=== PATIENT | female | born 1945 | race Caucasian/White ===

== ENCOUNTER 2020-11-05 10:34 | Outpatient (REF) | payer MEDICARE, OTHER, SELFPAY | END 2020-11-05 10:35 | disposition home or self-care (01) | LOC: HO.LNP 10:34 | PROVIDERS: Visit Provider Internal Medicine | DX: R25.2 Cramp and spasm (principal) | CPT/HCPCS: 82310 ==

== ENCOUNTER 2021-05-27 10:38 | Outpatient (REF) | payer MEDICARE, OTHER, SELFPAY ==
[2021-05-27 10:41] LABS: MANUAL DIFF FLAG NO
[2021-05-27 11:10] LABS: Basophils Percent Auto 0.4 % (0-2); Eosinophils Percent Auto 0.6 % (0-4); Hematocrit 41.9 % (37.0-47.0); Hemoglobin 13.4 g/dl (12.0-16.0); Imm Gran Abs Auto 0.03 X10*3/uL (0.00-0.03); Imm Gran Pct Auto 0.4 % (0.0-0.4); Lymphocytes Absolute Auto 1.7 X10*3/uL (1.2-4.9); Lymphocytes Percent Auto 25.6 % (20-40); Mean Corpuscular Hemoglobin 32.6 pg (27.0-33.0); Mean Corpuscular Volume 101.9 fL (80.0-98.0); Mean Platelet Volume 10.1 fL (9.4-12.3); Monocytes Absolute Auto 0.7 X10*3/uL (0.1-1.2); Monocytes Percent Auto 9.7 % (2-11); Neutrophils Absolute Auto 4.2 x10*3/uL (2.0-8.3); Neutrophils Percent Auto 63.3 % (45-73); Platelet Count 349 X10*3/uL (160-400); Red Blood Count 4.11 X10*6/uL (4.20-5.50); White Blood Count 6.7 X10*3/uL (4.8-10.8)
[2021-05-27 11:19] LABS: Appearance Urine HAZY; Color Urine YELLOW; Glucose Urine UA NEG (NEG); Leukocyte Esterase Urine NEG (NEG); Nitrite Urine NEG (NEG); Urine Blood NEG (NEG); Urine Ketones NEG (NEG); Urine Protein NEG (NEG-TRACE)
[2021-05-27 11:39] LABS: Alanine Aminotransferase 25 U/L (0-31); Alkaline Phosphatase 60 U/L (39-117); Anion Gap 12 (12-20); Aspartate Amino Transferase 26 U/L (5-31); Bilirubin Total 0.6 mg/dL (0.0-1.0); Blood Urea Nitrogen 21 mg/dL (9-16); Calcium 9.2 mg/dL (8.4-10.2); Carbon Dioxide 28 mmol/L (22-29); Chloride 105 mmol/L (96-108); Cholesterol 177 mg/dL; Estimated Glomerular Filt Rate > 60; Glucose Fasting 113 mg/dL (60-99); HDL Cholesterol 42 mg/dL; LDL Cholesterol Calculated 111 mg/dl; Sodium 140 mmol/L (135-145); Total Protein 6.8 g/dL (6.5-8.0); Triglycerides 120 mg/dL
== END 2021-05-27 10:39 | disposition home or self-care (01) ==
LOC: HO.LNP 10:38
PROVIDERS: Visit Provider Internal Medicine
DX: I10 Essential (primary) hypertension (principal); R79.9 Abnormal finding of blood chemistry, unspecified; E21.3 Hyperparathyroidism, unspecified
CPT/HCPCS: 80053; 80061; 81003; 85025

== ENCOUNTER 2021-05-30 13:05 | Outpatient (REF) | payer MEDICARE, OTHER, SELFPAY ==
--- NOTE | ~2021-05-30 | XR_ITS ---
EXAMINATION: XR CERVICAL SPINE CLINICAL INFORMATION: Mass in neck COMPARISON: None TECHNIQUE: 6 views of the cervical spine were obtained. FINDINGS: The cervical spine is visualized in its entirety. Alignment is within normal limits although there appears to be moderate levoscoliosis of the cervical/thoracic spine centered at T4. C1/C2 articulation is suboptimally visualized but appears grossly unremarkable. Cervical vertebral body heights are maintained. Disc spaces demonstrate moderate to severe narrowing throughout the mid and lower cervical spine. Moderate osteophytes are noted diffusely throughout the cervical spine. There appears to be mild to moderate narrowing of the right C4/C5 neural foramina with mild narrowing of the left C4/C5 neural foramina. There is no prevertebral soft tissue swelling present. Old left first rib fractures again identified. Visualized lung apices are well aerated. XR/XR cervical spine 4V IMPRESSION: Moderate diffuse degenerative changes of the cervical spine. No compression deformity.
--- NOTE | ~2021-05-30 | MM_ITS ---
EXAMINATION: BONE DENSITOMETRY CLINICAL INDICATION: Osteoporosis. COMPARISON: Baseline BD dated 05/26/2019. TECHNIQUE: Using a [employer] DXA System (software version: 13.1) manufactured by [employer], dual-energy x-ray absorptiometry was performed of the lumbar spine, left hip, and right forearm radius 33%. The images are of good technical quality. Summary results are attached. FINDINGS: AP SPINE L1-L4: Current: BMD 1.053 g/cm2, Z-score 0.4, T-score -1.1, osteopenia, 3.6% decrease from baseline (<5% change is not significant). Baseline: BMD 1.092 g/cm2. LEFT FEMUR, NECK: Current: BMD 0.872 g/cm2, Z-score 0.6, T-score -1.2, osteopenia. Baseline: BMD 0.823 g/cm2. LEFT FEMUR, TOTAL: Current: BMD 0.870 g/cm2, Z-score 0.5, T-score -1.1, osteopenia, 11.7% increase from baseline (<5% change is not significant). Baseline: BMD 0.779 g/cm2. RIGHT FOREARM RADIUS 33%: BMD 0.644 g/cm2, Z-score -0.3, T-score -2.7, osteoporosis, 0.8% increase from baseline (<5% change is not significant). Baseline: BMD 0.639 g/cm2. IDENTIFIED RISK FACTORS: Osteoporosis, hyperparathyroidism, 3 or more alcoholic drinks per day, history of fracture (adult), menopause. HISTORY OF FRACTURE: Wrist. Other. MEDICATIONS: Calcium supplements or multivitamin, vitamin D. MM/XR DEXA appendicular skeleton IMPRESSION: 1. DIAGNOSIS: Severe osteoporosis based on the lowest T-score value of -2.7 in the forearm radius 33% and fracture history applying World Health Organization criteria. 2. 10-YEAR FRACTURE RISK PREDICTION, FRAX: Major osteoporotic fracture (clinical spine, forearm, hip or shoulder) 19.4%. Hip fracture 4.0%. 3. Treatment Recommendations: NOF guidelines recommend consideration for treatment in postmenopausal women and men age 50 and older presenting with the following: -A hip or vertebral (clinical or morphometric) fracture. -T-score less than or equal to -2.5 at the femoral neck or spine after appropriate evaluation to exclude secondary causes. -Low bone mass at the hip or spine and a 10-year fracture probability by FRAX of greater than or equal to 3% for hip fracture or greater than or equal to 20% for major osteoporotic fracture based on the [place] adapted WHO algorithm. 4. Other Recommendations: All treatment decisions require clinical judgment and consideration of individual patient factors, including patient preferences, comorbidities, previous drug use, risk factors not captured in the FRAX model (e.g. frailty, falls, vitamin D deficiency, increased bone turnover, interval significant decline in bone density) and possible under or overestimation of fracture risk by FRAX. Additional medical evaluation for secondary cause of low bone mineral density may be appropriate. FUTURE SCAN RECOMMENDATION: People with diagnosed cases of osteoporosis or at high risk for fracture should have regular bone mineral density tests. For patients eligible for Medicare, routine testing is allowed once every 2 years. The testing frequency can be increased to one year for patients who have rapidly progressing disease, those who are receiving or discontinuing medical therapy to restore bone mass, or have additional risk factors.
== END 2021-05-30 13:06 | disposition home or self-care (01) ==
LOC: HO.MAMMO 13:05
PROVIDERS: PCP Internal Medicine; Visit Provider Internal Medicine
DX: Z13.820 Encounter for screening for osteoporosis (principal); M81.0 Age-related osteoporosis without current pathological fracture; E21.3 Hyperparathyroidism, unspecified; R22.1 Localized swelling, mass and lump, neck; Z79.899 Other long term (current) drug therapy; Z87.81 Personal history of (healed) traumatic fracture
CPT/HCPCS: 72050; 77081

== ENCOUNTER 2022-05-26 11:13 | Outpatient (REF) | payer MEDICARE, OTHER, SELFPAY ==
[2022-05-26 11:15] LABS: MANUAL DIFF FLAG NO
[2022-05-26 11:50] LABS: Appearance Urine Clear; Color Urine Yellow; Glucose Urine UA Negative (Negative); Leukocyte Esterase Urine Small (1+) (Negative); Nitrite Urine Positive (Negative); PH 5.5 (5.0-9.0); UMIC TRIGGER UA YES; Urine Blood Negative (Negative); Urine Ketones Negative (Negative); Urine Protein Negative (Neg-Trace)
[2022-05-26 11:54] LABS: Bacteria Urine 4+ (None Seen); Hyaline Casts Urine 0-2 /LPF (0-2); RBC Urine 0-2 /HPF (0-2); Squamous Epithelial Cell Urine 0-2 /HPF (0-2); WBC Urine 21-50 /HPF (0-5)
[2022-05-26 11:56] LABS: Hematocrit 41.6 % (37.0-47.0); Hemoglobin 13.5 g/dl (12.0-16.0); Imm Gran Pct Auto 0.4 % (0.0-0.4); Mean Corpuscular HGB Conc 32.5 g/dl (31.0-35.0); Mean Corpuscular Hemoglobin 32.5 pg (27.0-33.0); Mean Corpuscular Volume 100.2 fL (80.0-98.0); Mean Platelet Volume 10.5 fL (9.4-12.3); Neutrophils Percent Auto 66.7 % (45-73); Platelet Count 380 X10*3/uL (160-400); Red Blood Count 4.15 X10*6/uL (4.20-5.50); Red Cell Distribution Width 12.8 % (11.0-16.0); White Blood Count 8.5 X10*3/uL (4.8-10.8)
[2022-05-26 11:57] LABS: Basophils Percent Auto 0.5 % (0-2); Eosinophils Percent Auto 0.4 % (0-4); Imm Gran Abs Auto 0.03 X10*3/uL (0.00-0.03); Monocytes Absolute Auto 0.8 X10*3/uL (0.1-1.2); Neutrophils Absolute Auto 5.7 x10*3/uL (2.0-8.3)
[2022-05-26 12:25] LABS: Alanine Aminotransferase 27 U/L (0-31); Albumin Level 4.2 g/dL (3.5-5.0); Alkaline Phosphatase 54 U/L (39-117); Anion Gap 11 (12-20); Aspartate Amino Transferase 34 U/L (5-31); Bilirubin Total 0.5 mg/dL (0.0-1.0); Blood Urea Nitrogen 38 mg/dL (9-16); Calcium 8.9 mg/dL (8.4-10.2); Carbon Dioxide 28 mmol/L (22-29); Chloride 107 mmol/L (96-108); Cholesterol 164 mg/dL; Estimated Glomerular Filt Rate > 60; Glucose Fasting 114 mg/dL (60-99); HDL Cholesterol 44 mg/dL; LDL Cholesterol Calculated 98 mg/dl; Potassium 5.6 mmol/L (3.3-5.1); Sodium 140 mmol/L (135-145); Total Protein 6.9 g/dL (6.5-8.0); Triglycerides 111 mg/dL
== END 2022-05-26 11:14 | disposition home or self-care (01) ==
LOC: HO.LNP 11:13
PROVIDERS: Visit Provider Internal Medicine
DX: I10 Essential (primary) hypertension (principal); E21.3 Hyperparathyroidism, unspecified
CPT/HCPCS: 80053; 80061; 81001; 85025

== ENCOUNTER 2022-05-29 10:47 | Outpatient (REF) | payer MEDICARE, OTHER, SELFPAY ==
[2022-05-29 12:44] LABS: Blood Urea Nitrogen 30 mg/dL (9-16); Potassium 5.4 mmol/L (3.3-5.1)
== END 2022-05-29 10:48 | disposition home or self-care (01) ==
LOC: HO.LNP 10:47
PROVIDERS: Visit Provider Internal Medicine
DX: R79.9 Abnormal finding of blood chemistry, unspecified (principal); E87.5 Hyperkalemia
CPT/HCPCS: 84132; 84520

== ENCOUNTER 2022-06-30 10:49 | Outpatient (REF) | payer MEDICARE, OTHER, SELFPAY ==
[2022-06-30 11:30] LABS: Blood Urea Nitrogen 20 mg/dL (9-16)
== END 2022-06-30 10:50 | disposition home or self-care (01) ==
LOC: HO.LNP 10:49
PROVIDERS: Visit Provider Internal Medicine
DX: E87.5 Hyperkalemia (principal); R79.9 Abnormal finding of blood chemistry, unspecified
CPT/HCPCS: 84132; 84520

== ENCOUNTER 2023-03-03 09:31 | Outpatient (REF) | payer MEDICARE, OTHER, SELFPAY ==
[2023-03-03 10:07] LABS: Calcium 8.9 mg/dL (8.4-10.2)
[2023-03-03 10:28] LABS: COVID-19 Test Negative (Negative); IDNOW Serial# 08D9AD1C
[2023-03-10 16:33] LABS: Parathyroid Hormone Related Pr 12 pg/mL (11-20)
== END 2023-03-03 09:32 | disposition home or self-care (01) ==
LOC: HO.LAB 09:31
PROVIDERS: PCP Internal Medicine; Visit Provider Internal Medicine
DX: E21.3 Hyperparathyroidism, unspecified (principal); Z20.822 Contact with and (suspected) exposure to COVID-19
CPT/HCPCS: 82310; 83519; 87635

== ENCOUNTER 2023-05-28 10:47 | Outpatient (REF) | payer MEDICARE, OTHER, SELFPAY ==
[2023-05-28 10:52] LABS: MANUAL DIFF FLAG NO
[2023-05-28 11:08] LABS: Appearance Urine Cloudy; Color Urine Yellow; Glucose Urine UA Negative (Negative); Leukocyte Esterase Urine Moderate (2+) (Negative); Nitrite Urine Positive (Negative); UMIC TRIGGER UACC YES; Urine Blood Negative (Negative); Urine Ketones Negative (Negative); Urine Protein Negative (Neg-Trace)
[2023-05-28 11:16] LABS: Bacteria Urine 4+ (None Seen); Hyaline Casts Urine 0-2 /LPF (0-2); UACC Culture Trigger YES; WBC Urine >50 /HPF (0-5)
[2023-05-28 11:19] LABS: Alanine Aminotransferase 19 U/L (0-31); Alkaline Phosphatase 54 U/L (39-117); Anion Gap 11 (12-20); Aspartate Amino Transferase 25 U/L (5-31); Basophils Absolute Auto 0.1 X10*3/uL (0.0-0.2); Basophils Percent Auto 0.8 % (0-2); Bilirubin Total 0.7 mg/dL (0.0-1.0); Blood Urea Nitrogen 16 mg/dL (9-16); Calcium 9.1 mg/dL (8.4-10.2); Carbon Dioxide 31 mmol/L (22-29); Chloride 106 mmol/L (96-108); Cholesterol 192 mg/dL (<200); Eosinophils Absolute Auto 0.1 X10*3/uL (0.0-0.4); Eosinophils Percent Auto 1.1 % (0-4); Estimated Glomerular Filt Rate > 60; Glucose Fasting 112 mg/dL (60-99); HDL Cholesterol 58 mg/dL (>40); Hematocrit 43.8 % (37.0-47.0); Hemoglobin 14.2 g/dl (12.0-16.0); Imm Gran Abs Auto 0.01 X10*3/uL (0.00-0.03); Imm Gran Pct Auto 0.2 % (0.0-0.4); LDL Cholesterol Calculated 116 mg/dL (<100); Lymphocytes Absolute Auto 1.9 X10*3/uL (1.2-4.9); Lymphocytes Percent Auto 29.6 % (20-40); Mean Corpuscular HGB Conc 32.4 g/dl (31.0-35.0); Mean Corpuscular Hemoglobin 31.2 pg (27.0-33.0); Mean Corpuscular Volume 96.3 fL (80.0-98.0); Mean Platelet Volume 10.3 fL (9.4-12.3); Monocytes Absolute Auto 0.5 X10*3/uL (0.1-1.2); Monocytes Percent Auto 8.3 % (2-11); Neutrophils Absolute Auto 3.8 x10*3/uL (2.0-8.3); Platelet Count 318 X10*3/uL (160-400); Potassium 4.8 mmol/L (3.3-5.1); Red Blood Count 4.55 X10*6/uL (4.20-5.50); Red Cell Distribution Width 14.3 % (11.0-16.0); Sodium 143 mmol/L (135-145); Total Protein 7.1 g/dL (6.5-8.0); Triglycerides 91 mg/dL (<150); White Blood Count 6.3 X10*3/uL (4.8-10.8)
== END 2023-05-28 10:48 | disposition home or self-care (01) ==
LOC: HO.LNP 10:47
PROVIDERS: Visit Provider Internal Medicine
DX: I10 Essential (primary) hypertension (principal); E21.3 Hyperparathyroidism, unspecified; R82.90 Unspecified abnormal findings in urine
CPT/HCPCS: 80053; 80061; 81001; 85025; 87086; 87088; 87186

== ENCOUNTER 2023-06-18 11:03 | Outpatient (REF) | payer MEDICARE, OTHER, SELFPAY ==
[2023-06-18 11:29] LABS: Appearance Urine Clear; Color Urine Yellow; Glucose Urine UA Negative (Negative); Leukocyte Esterase Urine Negative (Negative); Nitrite Urine Negative (Negative); PH 7.5 (5.0-9.0); Urine Blood Negative (Negative); Urine Ketones Negative (Negative); Urine Protein Negative (Neg-Trace)
[2023-06-18 11:33] LABS: Bacteria Urine None Seen (None Seen); Hyaline Casts Urine 0-2 /LPF (0-2); RBC Urine 0-2 /HPF (0-2); Squamous Epithelial Cell Urine 0-2 /HPF (0-2); WBC Urine 0-5 /HPF (0-5)
== END 2023-06-18 11:04 | disposition home or self-care (01) ==
LOC: HO.LNP 11:03
PROVIDERS: Visit Provider Internal Medicine
DX: R31.29 Other microscopic hematuria (principal)
CPT/HCPCS: 81001; 87086

== ENCOUNTER 2024-02-01 10:26 | Outpatient (REF) | payer MEDICARE, OTHER, SELFPAY ==
[2024-02-01 10:57] LABS: Blood Urea Nitrogen 19 mg/dL (9-16); Calcium 9.1 mg/dL (8.4-10.2); Estimated Glomerular Filt Rate > 60
== END 2024-02-01 10:27 | disposition home or self-care (01) ==
LOC: HO.LNP 10:26
PROVIDERS: Visit Provider Internal Medicine
DX: R60.0 Localized edema (principal)
CPT/HCPCS: 82310; 82565; 84520

== ENCOUNTER 2024-06-27 12:00 | Outpatient (REF) | payer MEDICARE, OTHER, SELFPAY ==
[2024-06-27 13:09] LABS: Influenza A PCR POSITIVE (Negative); Influenza B PCR NEGATIVE (Negative); Resp Syncy Virus RNA Qual PCR NEGATIVE (Negative); SARS COV2 PCR INHOUSE NEGATIVE (Negative)
--- OUTSIDE RECORDS SUMMARY | 2024-06-27 13:57 | XMS_ITS | Patient Health Record ---
Author Organization Jauquin Thapa MD Address [address] [place], [place] [phone] Care Team Providers Care District Scout Executive Name Role Phone Juaquin Thapa Primary Care Provider ALLERGIES Allergen (clinical drug ingredient) Drug/Non Drug Allergy documented on EMR Reaction Allergy Type Onset Date Status Penicillin G Benzathine rash Drug Allergy Active RESULTS Component Value Reference Range Notes Blood Urea Nitrogen Reviewed date:02/01/2024 12:38:55 PM Interpretation: Performing Lab:[facility], [address] [place] [phone] Notes/Report: Blood Urea Nitrogen 19 9-16 mg/dL Creatinine Reviewed date:02/01/2024 12:38:37 PM Interpretation: Performing Lab:[address] [phone] Notes/Report: Creatinine 0.84 0.5-1.4 mg/dL Estimated Glomerular Filt Rate > 60 NOTE: For -Solomon Islander individuals, multiply the result by 1.210. Chronic Kidney Disease: Estimated GFR < 60 mL/min/1.73m2 Severe Kidney Disease: Estimated GFR < 15 mL/min/1.73m2 Calcium Reviewed date:02/01/2024 12:38:46 PM Interpretation: Performing Lab:[address] [phone] Notes/Report: Calcium 9.1 8.4-10.2 mg/dL SARS-CoV2/FLU/RSV Reviewed date:06/27/2024 01:54:35 PM Interpretation: Performing Lab:[address] [phone] Notes/Report: Influenza A PCR POSITIVE Negative Influenza B PCR NEGATIVE Negative Resp Syncy Virus RNA Qual PCR NEGATIVE Negative SARS COV2 PCR INHOUSE NEGATIVE Negative All test results must be correlated with clinical findings. Negative results do not preclude SARS-CoV2, influenza A virus, influenza B virus and/or RSV infection and should not be used as the sole basis for treatment or other patient management decisions. Negative results must be combined with clinical observations, patient history, and epidemiological information. This test has not been evaluated for monitoring treatment of infection. This test has been authorized by the FDA under an Emergency Use Authorization (EUA) for use by authorized laboratories. Testing performed on the [employer] GeneXpert utilizing real-time RT-PCR. All SARS CoV2 and positive influenza A/B results are reported to [facility]. REASON FOR REFERRAL No Information MEDICATIONS Medication SIG (Take, Route, Frequency, Duration) Notes Start Date End Date Status Calcium 500 MG 6 tabs at night and one in morning Twice a day Active Tamiflu 75 MG 1 capsule Orally Twi ce a day for 5 day(s) 06/27/2024 Active hydroCHLOROthiazide 25 MG TAKE 1 TABLET BY MOUTH EVERY DAY IN THE MORNING FOR 30 DAYS for 90 Active Carvedilol 12.5 MG TAKE 1 TABLET BY AVILA TH EVERY DAY WITH FOOD FOR 30 DAYS for 90 Active Calcitriol 0.25 MCG TAKE 1 CAPSULE BY MO [facility] THREE TIMES A DAY for 90 Active IMMUNIZATIONS Vaccine Route Administration Date Status Comme nts Covid Vaccine Unknown 07/26/2020 Administered Pfizer Covid Vaccine Unknown 08/16/2020 Administered Pfizer SARS-COV-2 Pfizer Unknown 04/06/2021 Administered Fluarix Quadrivalent Unknown 04/27/2018 Refused Shingrix Unknown 05/04/2018 Refused PPSV23 (Pnemovax) Unknown 11/01/2018 Refused Influenza High Dose Unknown 04/25/2019 Refused Fluarix Quadrivalent Unknown 05/07/2020 Refused Fluarix Quadrivalent Unknown 05/30/2021 Refused SOCIAL HISTORY Tobacco Use: Social History Observation Description Date Details (start date - stop date) Never Smoker NA - NA Sex Assigned At : Social History Observation Description Sex Assigned At Unknown Tobacco Use/Smoking Question Answer Notes Patient is a nonsmoker Additional Findings: Tobacco Non-User Cu rrent non-smoker, currently using no form of tobacco Alcohol Screen Question Answer Notes Did you have a drink contain ing alcohol in the past year? Yes How often did you have a dri nk containing alcohol in the past year? 4 or more times a week (4 points) How many drinks did you have on a typical day when you were drinking in the past year? 1 or 2 drinks (0 point) How often did you have 6 or more drinks on one occasion in the past year? Never (0 point) Points 4 Interpretation Positive PROBLEMS Problem Type ICD Code Onset Dates Problem Status W/U Status Risk SNOMED Code Notes Problem Age-related osteoporosis without current pathological fracture (M81.0) Active confirmed 35774829 Problem Essential hypertension (I10) Active confirmed 92782332 Problem Hyperparathyroidism (E21.3) Active confirmed 64690816 Problem Nocturnal leg cramps (G47.62) Active confirmed 006248132 Problem History of parathyroidectomy (Z98.890) Active confirmed [id number] VITAL SIGNS Blood pressure diastolic 70 mm Hg 02/08/2024 tae ght is down 3 pounds since 01-04-24 Height 63.5 in 06/27/2024 weight is 170 a t home BP not taken at home no temp Blood pressure systolic 152 mm Hg 02/08/2024 weig ht is down 3 pounds since 01-04-24 Weight 170 lbs 06/27/2024 weight is 170 a t home BP not taken at home no temp BMI 29.64 kg/m2 06/27/2024 weight is 170 a t home BP not taken at home no temp Encounters Encounter Location Date Provider Diagnosis Juaquin Thapa MD [address] [place] [id number] 02/01/2024 Juaquin Thapa Essential hypertensi on I10 and Lower extremity edema R60.0 Juaquin Thapa MD [address] [place] [id number] 12/04/2023 Juaquin Thapa Essential hypertensi on I10 ; Lower extremity edema R60.0 and Nocturnal leg cramps G47.62 Juaquin Thapa MD [address] [place] [id number] 01/04/2024 Juaquin Thapa Lower extremity chris a R60.0 and History of parathyroidectomy Z98.890 Juaquin Thapa MD [address] [place] [address] Drive [address] [place] [id number] 02/08/2024 Juaquin Thapa Intermittent vertigo R42 and Essential hypertension I10 Juaquin Thapa MD [address] [place], [place] [id number] 01/05/2024 Juaquin Thapa Lower extremity chris a R60.0 Juaquin Thapa MD [address] [place], [place] [id number] 06/27/2024 Juaquin Thapa Respiratory infectio n J98.8 and Flu J11.1 ASSESSMENTS Encounter Date Diagnosis Assessment Notes Treatment Notes Treatment Clinical Notes 02/01/2024 Essential hypertensi on (ICD-10 - I10) 02/01/2024 Lower extremity chris a (ICD-10 - R60.0) 12/04/2023 Essential hypertensi on (ICD-10 - I10) patient verbalized understanding of medication changes and directions for use 12/04/2023 Lower extremity chris a (ICD-10 - R60.0) will continue to monitor 01/04/2024 History of parathyroidectomy (ICD-10 - Z98.890) parathormone levels normal so calcium should not be a problem, will continue to monitor 01/04/2024 Lower extremity chris a (ICD-10 - R60.0) pending labs, patient verbalized understanding of medication and direction for use 02/08/2024 Essential hypertensi on (ICD-10 - I10) 02/08/2024 Intermittent vertigo (ICD-10 - R42) has resolved. only lasted a minute and was back to normal so was not a stroke 01/05/2024 Lower extremity chris a (ICD-10 - R60.0) 06/27/2024 Respiratory infectio n (ICD-10 - J98.8) patient verbalized understanding of medication and directions for use, order faxed to [facility] patient [place] 06/27/2024 Flu (ICD-10 - J11.1) pending diganostic testing 12/04/2023 Nocturnal leg cramps (ICD-10 - G47.62) to try some tonic water with quinine, and will continue to monitor PLAN OF TREATMENT Pending Test Test Name Order Date XR CERVICAL SPINE 4+ VIEWS 05/30/2021 XR DEXA axial skeleton 05/30/2021 Future Test Test Name Order Date XR DEXA axial skeleton 06/21/2021 Next Appt Details Provider Name:Juaquin Ashford ier, 07/12/2024 08:00:00 AM, [address], [address], [place], [place], [phone], Provider Name:Juaquin Ashford ier, 07/18/2024 01:00:00 PM, [address], [address], [place], [place], [phone], Insurance Providers Payer Name Payer Address Payer Phone Subscriber Number Group Number Insured Name Patient Relationship to Insured Coverage Start Date Coverage End Date MEDICARE NHIC [address] [place] [address] [id number] Keila Verde Self - patient is the insured [facility] [address] [place] [phone] [id number] Keila Verde Self - patient is the insured MEDICAL (GENERAL) HISTORY Medical History History ICD Code spoke with radiaologist and 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
--- OUTSIDE RECORDS SUMMARY | 2024-06-27 13:57 | XMS_ITS ---
Author Organization Juaquin Thapa MD Address [address] [place] [phone] Care Team Providers Care Multifocal Button Generator Name Role Phone Juaquin Thapa Primary Care Provider [phone] RESULTS Component Value Reference Range Notes Blood Urea Nitrogen Reviewed date:02/01/2024 12:38:55 PM Interpretation: Performing Lab:[facility], [address] [place] [phone] Notes/Report: Blood Urea Nitrogen 19 9-16 mg/dL Creatinine Reviewed date:02/01/2024 12:38:37 PM Interpretation: Performing Lab:[facility], [address] [place] [phone] Notes/Report: Creatinine 0.84 0.5-1.4 mg/dL Estimated Glomerular Filt Rate > 60 NOTE: For -Lebanese individuals, multiply the result by 1.210. Chronic Kidney Disease: Estimated GFR < 60 mL/min/1.73m2 Severe Kidney Disease: Estimated GFR < 15 mL/min/1.73m2 Calcium Reviewed date:02/01/2024 12:38:46 PM Interpretation: Performing Lab:[facility], [address] [place] [phone] Notes/Report: Calcium 9.1 8.4-10.2 mg/dL REASON FOR VISIT bun, creatine, Calcium Encounters Encounter Location Date Provider Diagnosis Juaquin Thapa MD [address] [place] [id number] 02/01/2024 Juaquin Thapa Essential hypertension I10 and Lower extremity edema R60.0 ASSESSMENTS Encounter Date Diagnosis Assessment Notes Treatment Notes Treatment Clinical Notes 02/01/2024 Essential hypertension (ICD-10 - I10) 02/01/2024 Lower extremity edema (ICD-10 - R60.0) PLAN OF TREATMENT Next Appt Details Provider Name:Juaquin mccray, 07/12/2024 08:00:00 AM, [address] [place] [address], [address], [place], [phone], Provider Name:Juaquin mccray, 07/18/2024 01:00:00 PM, [address] [place] [address], [address], [place], [phone],
--- OUTSIDE RECORDS SUMMARY | 2024-06-27 13:57 | XMS_ITS ---
Author Organization Juaquin Thapa MD Address [address] [place] [phone] Care Team Providers Care Trauma Program Manager Name Role Phone Juaquin Thapa Primary Care Provider ALLERGIES Allergen (clinical drug ingredient) Drug/Non Drug Allergy documented on EMR Reaction Allergy Type Onset Date Status Penicillin G Benzathine rash Drug Allergy Active REASON FOR VISIT Vertigo loosing her balance MEDICATIONS Medication SIG (Take, Route, Frequency, Duration) Notes Start Date End Date Status Calcitriol 0.25 MCG TAKE 1 CAPSULE BY [facility] THREE TIMES A DAY for 90 Active hydroCHLOROthiazide 25 MG 1 tablet in th e morning Orally Once a day for 30 days 01/04/2024 Active Calcium 500 MG 6 tabs at night and one in morning Twice a day Active Carvedilol 12.5 MG 1 tablet with food O rally once a day for 30 day(s) 12/04/2023 Active VITAL SIGNS BMI 29.81 kg/m2 02/08/2024 Blood pressure systolic 152 mm Hg 02/08/20 24 Blood pressure diastolic 70 mm Hg 024 Height 63.5 in 02/08/2024 Weight 171 lbs 02/08/2024 weight is down 3 pounds [facility] 01-04-24 Encounters Encounter Location Date Provider Diagnosis Juaquin Thapa MD [address] [place] [id number] 02/08/2024 Juaquin Thapa Intermittent vertigo R42 and Essential hypertension I10 ASSESSMENTS Encounter Date Diagnosis Assessment Notes Treatment Notes Treatment Clinical Notes 02/08/2024 Intermittent vertigo (ICD-10 - R42) has resolved. only lasted a minute and was back to normal so was not a stroke 02/08/2024 Essential hypertension (ICD-10 - I10) PLAN OF TREATMENT Treatment Notes Assessment Notes Intermittent vertigo has resolved. only lasted a minute and was back to normal so was not a stroke Next Appt Details Provider Name:Juaquin Ashford mahendra, 07/12/2024 08:00:00 AM, [address], [address], [place], [place], [phone], Provider Name:Juaquin Ashford omarr, 07/18/2024 01:00:00 PM, [address], [address], [place], [place], [phone], Progress Notes * Examination Category Sub-Category Detail Notes General Examination GENERAL APPEARANCE: alert, w ell hydrated, in no distress EYES: BOTH EYES with nysta gmus on lateral gaze HEART: regular rate and rhy thm, no murmurs, rubs, gallops LUNGS: no wheezes, rales, r honchi, good air movement, clear to auscultation bilaterally SKIN: good turgor EXTREMITIES: trace edema History and Physical Notes * HPI (History of Present Illness) Category Sub-Category Detail Notes Fall Risk History Have you had any falls with injury in the past year?: Yes 3 weeks ago was in the kitchen, thought dog was behind her , turned around and landed on the floor, did not black out did not hit head. No ER Have you had two or more falls in the year?: No
== END 2024-06-27 12:01 | disposition home or self-care (01) ==
LOC: HO.LAB 12:00
PROVIDERS: PCP Internal Medicine; Visit Provider Internal Medicine
DX: J98.8 Other specified respiratory disorders (principal)
CPT/HCPCS: 0241U

== ENCOUNTER 2024-07-12 07:10 | Outpatient (REF) | payer MEDICARE, OTHER, SELFPAY ==
[2024-07-12 07:26] LABS: MANUAL DIFF FLAG NO
[2024-07-12 07:59] LABS: Basophils Percent Auto 0.4 % (0-2); Eosinophils Percent Auto 0.4 % (0-4); Hematocrit 43.4 % (37.0-47.0); Hemoglobin 14.3 g/dl (12.0-16.0); Imm Gran Abs Auto 0.02 X10*3/uL (0.00-0.03); Imm Gran Pct Auto 0.3 % (0.0-0.4); Lymphocytes Absolute Auto 1.8 X10*3/uL (1.2-4.9); Lymphocytes Percent Auto 24.5 % (20-40); Mean Corpuscular HGB Conc 32.9 g/dl (31.0-35.0); Mean Corpuscular Hemoglobin 32.3 pg (27.0-33.0); Mean Platelet Volume 9.9 fL (9.4-12.3); Monocytes Absolute Auto 0.7 X10*3/uL (0.1-1.2); Monocytes Percent Auto 8.9 % (2-11); Neutrophils Absolute Auto 4.8 x10*3/uL (2.0-8.3); Neutrophils Percent Auto 65.5 % (45-73); Platelet Count 401 X10*3/uL (160-400); Red Blood Count 4.43 X10*6/uL (4.20-5.50); White Blood Count 7.3 X10*3/uL (4.8-10.8)
[2024-07-12 08:02] LABS: Appearance Urine Hazy; Color Urine Yellow; Glucose Urine UA Negative (Negative); Leukocyte Esterase Urine Small (1+) (Negative); Nitrite Urine Negative (Negative); PH 7.5 (5.0-9.0); Specific Gravity - Urine 1.015 (1.005-1.025); UMIC TRIGGER UACC YES; Urine Blood Negative (Negative); Urine Ketones Negative (Negative); Urine Protein 30 (1+) mg/dL (Neg-Trace)
[2024-07-12 08:16] LABS: Bacteria Urine 4+ (None Seen); Hyaline Casts Urine 0-2 /LPF (0-2); RBC Urine 0-2 /HPF (0-2); Squamous Epithelial Cell Urine 0-2 /HPF (0-2); UACC Culture Trigger YES; WBC Urine >50 /HPF (0-5)
[2024-07-12 08:50] LABS: Alanine Aminotransferase 26 U/L (0-31); Alkaline Phosphatase 57 U/L (39-117); Anion Gap 12 (12-20); Aspartate Amino Transferase 23 U/L (5-31); Bilirubin Total 0.6 mg/dL (0.0-1.0); Blood Urea Nitrogen 21 mg/dL (9-16); Calcium 8.9 mg/dL (8.4-10.2); Carbon Dioxide 31 mmol/L (22-29); Chloride 104 mmol/L (96-108); Cholesterol 192 mg/dL (<200); Estimated Glomerular Filt Rate > 60; Glucose Fasting 157 mg/dL (60-99); HDL Cholesterol 44 mg/dL (>40); LDL Cholesterol Calculated 125 mg/dL (<100); Sodium 143 mmol/L (135-145); Total Protein 7.6 g/dL (6.5-8.0); Triglycerides 116 mg/dL (<150)
[2024-07-12 08:56] LABS: Parathyroid Hormone Intact 31.3 pg/mL (8.7-77.1)
== END 2024-07-12 07:11 | disposition home or self-care (01) ==
LOC: HO.LAB 07:10
PROVIDERS: PCP Internal Medicine; Visit Provider Internal Medicine
DX: E21.3 Hyperparathyroidism, unspecified (principal); I10 Essential (primary) hypertension
CPT/HCPCS: 36415; 80053; 80061; 81001; 83970; 85025; 87086; 87088; 87186

== ENCOUNTER 2024-08-01 10:53 | Outpatient (REF) | payer MEDICARE, OTHER, SELFPAY ==
[2024-08-01 11:30] LABS: Blood Urea Nitrogen 19 mg/dL (9-16); Estimated Glomerular Filt Rate > 60; Potassium 4.4 mmol/L (3.3-5.1)
--- OUTSIDE RECORDS SUMMARY | 2024-08-01 11:57 | XMS_ITS ---
Author Organization Juaquin Thapa MD Address [address] [place], [place] [phone] Care Team Providers Care Lucerne Farmer Name Role Phone Juaquin Thapa Primary Care Provider [phone] Results Component Value Reference Range Notes Complete Blood Count Auto Di ff Reviewed date:07/12/2024 12:47:19 PM Interpretation: Performing Lab:[facility], [address] [place] [phone] Notes/Report: White Blood Count 7.3 4.8-10.8 X10*3/uL Red Blood Count 4.43 4.20-5.50 X10*6/uL Hemoglobin 14.3 12.0-16.0 g/dl Hematocrit 43.4 37.0-47.0 % Mean Corpuscular Volume 98.0 80.0-98.0 fL Mean Corpuscular Hemoglobin 32.3 27.0-33.0 pg Mean Corpuscular HGB Conc 32.9 31.0-35.0 g/dl Red Cell Distribution Width 13.0 11.0-16.0 % Platelet Count 401 160-400 X10*3/uL Mean Platelet Volume 9.9 9.4-12.3 fL Neutrophils Percent Auto 65.5 45-73 % Imm Gran Pct Auto 0.3 0.0-0.4 % Lymphocytes Percent Auto 24.5 20-40 % Monocytes Percent Auto 8.9 2-11 % Eosinophils Percent Auto 0.4 0-4 % Basophils Percent Auto 0.4 0-2 % NRBC Pct Auto 0.0 0.0-0.2 /100WBC Neutrophils Absolute Auto 4.8 2.0-8.3 x10*3/u L Imm Gran Abs Auto 0.02 0.00-0.03 X10*3/uL Lymphocytes Absolute Auto 1.8 1.2-4.9 X10*3/u L Monocytes Absolute Auto 0.7 0.1-1.2 X10*3/uL Eosinophils Absolute Auto 0.0 0.0-0.4 X10*3/u L Basophils Absolute Auto 0.0 0.0-0.2 X10*3/uL NRBC Abs Auto 0.000 0.0-0.012 X10*3/uL Comprehensive [place]. Panel Fa st Reviewed date:07/12/2024 12:46:54 PM Interpretation: Performing Lab:[facility], [address] [place] [phone] Notes/Report: Sodium 143 135-145 mmol/L Potassium 4.0 3.3-5.1 mmol/L Chloride 104 96-108 mmol/L Carbon Dioxide 31 22-29 mmol/L Anion Gap 12 12-20 Blood Urea Nitrogen 21 9-16 mg/dL Creatinine 0.77 0.5-1.4 mg/dL Estimated Glomerular Filt Rate > 60 Chronic Kidney Disease: Estimated GFR < 60 mL/min/1.73m2 Severe Kidney Disease: Estimated GFR < 15 mL/min/1.73m2 Glucose Fasting 157 60-99 mg/dL A fasting glucose of 126 mg/dl or greater on more than one occasion is considered diagnostic of diabetes. Calcium 8.9 8.4-10.2 mg/dL Bilirubin Total 0.6 0.0-1.0 mg/dL Aspartate Amino Transferase 23 5-31 U/L Alanine Aminotransferase 26 0-31 U/L Total Protein 7.6 6.5-8.0 g/dL Albumin Level 4.0 3.5-5.0 g/dL Alkaline Phosphatase 57 39-117 U/L Lipid Panel Reviewed date:07/12/2024 11:14:26 AM Interpretation: Performing Lab:[facility], [address] [place] [phone] Notes/Report: Triglycerides 116 <150 mg/dL Desirable Triglyceride: less than 150 mg/dL Borderline High Triglyceride 150-199 mg/dL High Triglyceride: 200-499 mg/dL Very High Triglyceride: greater than or equal to 5OO mg/dL Cholesterol 192 <200 mg/dL Desirable Cholesterol: less than 200 mg/dL Borderline High Cholesterol: 200-239 mg/dL High Cholesterol: greater than 239 mg/dL LDL Cholesterol Calculated 125 <100 mg/dL Desirable LDL: less than 100 mg/dL Near Optimal/Above Optimal LDL: 110-129 mg/dL Borderline High LDL: 130-159 mg/dL High LDL: 160-189 mg/dL Very High LDL: greater than or equal to 190 mg/dL HDL Cholesterol 44 >40 mg/dL Desirable HDL: greater than 40 mg/dL Note: This HDL assay may give artificially low results in patients with liver disease. UA ClnCatch+Micro w/rflx Cul t Reviewed date:07/12/2024 04:32:10 PM Interpretation: Performing Lab:[facility], [address] [place] [phone] Notes/Report: Urine, Clean Catch Color Urine Yellow Appearance Urine Hazy PH 7.5 5.0-9.0 Glucose Urine UA Negative Negative mg/dL Urine Blood Negative Negative Specific [place] - Urine 1.015 1.005-1.025 Urine Protein 30 (1+) Neg-Trace mg/dL Urine Ketones Negative Negative mg/dL Nitrite Urine Negative Negative Leukocyte Esterase Urine Small (1+) Negative RBC Urine 0-2 0-2 /HPF WBC Urine >50 0-5 /HPF Squamous Epithelial Cell Urine 0-2 0-2 /HPF Bacteria Urine 4+ None Seen Hyaline Casts Urine 0-2 0-2 /LPF Parathyroid Hormone Intact Reviewed date:07/12/2024 11:15:10 AM Interpretation: Performing Lab:[facility], [address] [place] [phone] Notes/Report: Parathyroid Hormone Intact 31.3 8.7-77.1 pg/mL REASON FOR VISIT yearly fasting labs Encounters Encounter Location Date Provider Diagnosis Juaquin Thapa MD [address] [place], [place] [phone] 07/12/2024 Juaquin Thapa Hyperparathyroidism E21.3 and Essential hypertension I10 Assessments Encounter Date Diagnosis (ICD Code) Assessment Notes Treatment Notes Treatment Clinical Notes Section Notes 07/12/2024 Hyperparathyroidism (ICD-10 - E21.3) 07/12/2024 Essential hypertensi on (ICD-10 - I10) Plan Of Treatment Next Appt Details Provider Name:Juaquin Ashford ier, 08/09/2024 01:45:00 PM, [address], [address], [place], [phone], Provider Name:Juaquin Ashford ier, 01/16/2025 01:30:00 PM, [address], [address], [place], [phone], Provider Name:Juaquin Ashford ier, 07/13/2025 08:00:00 AM, [address], [address], [place], [phone], Provider Name:Juaquin Ashford ier, 07/20/2025 01:30:00 PM, [address], [address], [place], [phone], Progress Notes * Keila VERDE ADOB:[birth year] (78 yo F)Acc No.[id number]:07/12/2024 Progress Note Patient:?DIMITRIOSINGRID Keila A Provider:?Juaquin Thapa MD :[id number]???Age:78 Y???Sex:Female D ate:07/12/2024 Address:[address] [place], [place] [phone] Subjective: * Chief Complaints: * ???1. Yearly fasting labs. * Medical History:? Objective: * Vitals:? Assessment: * Assessment: 1.?Hyperparathyroidism - E21 .3???2.?Essential hypertension - I10??? Plan: * Treatment: 2.?Essential hypertension?LAB: Complete Blood Count Auto Diff (Collection Date & Time - 07/12/2024 07:24 AM) ?LAB: Comprehensive [place]. Panel Fast (Collection Date & Time - 07/12/2024 07:24 AM) ?LAB: Lipid Panel (Collection Date & Time - 07/12/2024 07:24 AM) ?LAB: UA ClnCatch+Micro w/rflx Cult (Collection Date & Time - 07/12/2024 07:25 AM) ?LAB: Parathyroid Hormone Intact (Collection Date & Time - 07/12/2024 07:24 AM) * * The named appointment provid er may or may not be the originator of this progress note, and it is not deemed complete until electronically signed by the appointment provider. Sign off status: Pending * Provider:?Juaquin Thapa MD Date:?0 07/12/2024 Generated for Eloy hanna/Jerson/Lorieitting on:?08/01/2024 11:57 AM EST
--- OUTSIDE RECORDS SUMMARY | 2024-08-01 11:58 | XMS_ITS ---
Author Organization Juaquin Thapa MD Address [address] [place], [place] [id number] Care Team Providers Care Club Room Attendant Name Role Phone Juaquin Thapa Primary Care Provider [phone] Allergies Allergen (clinical drug ingredient) Drug/Non Drug Allergy documented on EMR Reaction Allergy Type Onset Date Status Penicillin G Benzathine rash Drug Allergy Active REASON FOR VISIT review labs Medications Medication SIG (Take, Route, Frequency, Duration) Notes Start Date End Date Status Calcium 500 MG 6 tabs at night and one in morning Twice a day Active Lisinopril 20 MG 1 tablet Orally Once a day for 30 days 07/18/2024 Active hydroCHLOROthiazide 25 MG TAKE 1 TABLET BY MOUTH EVERY DAY IN THE MORNING FOR 30 DAYS for 90 Active Tamiflu 75 MG 1 capsule Orally Twi ce a day for 5 day(s) 06/27/2024 Not-Taking Cephalexin 500 MG 1 capsule Orally twi ce a day for 5 days 07/18/2024 Active Calcitriol 0.25 MCG TAKE 1 CAPSULE BY MOUTH THREE TIMES A DAY for 90 Active Social History Tobacco Use: Social History Observation Description Date Details (start date - stop date) Never Smoker NA - NA Tobacco Use/Smoking Question Answer Notes Patient is [...] Never (0 point) Points 4 Interpretation Positive Vital Signs Blood pressure systolic 112 mm Hg 07/18/19 25 Blood pressure diastolic 70 mm Hg 025 Height 63.5 in 07/18/2024 Weight 166 lbs 07/18/2024 BMI 28.94 kg/m2 07/18/2024 weight is down 4 pounds [facility] e 06-27-24 Encounters Encounter Location Date Provider Diagnosis Juaquin Thapa MD [address] [place], [place] [phone] 07/18/2024 Juaquin Thapa Essential hypertension I10 ; History of hyperkalemia Z86.39 ; Acute UTI N39.0 and Depression screening Z13.31 Assessments Encounter Date Diagnosis (ICD Code) Assessment Notes Treatment Notes Treatment Clinical Notes Section Notes 07/18/2024 Essential hypertension (ICD-10 - I10) 07/18/2024 History of hyperkalemia (ICD-10 - Z86.39) hopefully with the hctz will be a able to take lisinopril without potassium going up 07/18/2024 Acute UTI (ICD-10 - N39.0) has been doing well. treated with appropriate ab. 07/18/2024 Depression screening (ICD-10 - Z13.31) negative screen Plan Of Treatment Medication Medication Name Sig Start Date Stop Date Notes Lisinopril 20 MG 1 tablet Orally Once a day for 30 days Carvedilol 12.5 MG TAKE 1 TABLET BY AVILA TH EVERY DAY WITH FOOD FOR 30 DAYS Cephalexin 500 MG 1 capsule Orally twice a day for 5 days 07/18/2024 Treatment Notes Assessment Notes History of hyperkalemia hopefully with t he hctz will be a able to take lisinopril without potassium going up Acute UTI has been doing well. treated with appropriate ab. Depression screening negative screen Pending Test Test Name Order Date Potassium 07/18/2024 Blood Urea Nitrogen 07/18/2024 Creatinine 07/18/2024 Next Appt Details Follow Up: 3 Weeks, Reason: Provider Name:Juaquin mccray, 08/09/2024 01:45:00 PM, [address], [address], [place], [place], [id number], Provider Name:Juaquin Ashford ier, 01/16/2025 01:30:00 PM, [address], [address], [place], [phone], Provider Name:Juaquin Ashford ier, 07/13/2025 08:00:00 AM, [address], [address], [place], [id number], Provider Name:Juaquin Ashford ier, 07/20/2025 01:30:00 PM, [address], [address], [place], [phone], Progress Notes * Keila VERDE ADOB:[birth year] (78 yo F)Acc No.[id number]:07/18/2024 Patient:?Keila VERDE A Provider:?Juaquin Thapa MD :1945???Age:78 Y???Sex:Female D ate:07/18/2024 Address:[address] [place] [address], [id number] Subjective: * Chief Complaints: * ???Review labs * HPI: ???Depression Screening:?PHQ-9?Little interest or pleasure in doing things?Not at all,?Feeling down, depressed, or hopeless?Not at all,?Trouble falling or staying asleep, or sleeping too much?Not at all,?Feeling tired or having little energy?Not at all,?Poor appetite or overeating?Not at all,?Feeling bad about yourself or that you are a failure, or have let yourself or your family down?Not at all,?Trouble concentrating on things, such as reading the newspaper or watching television?Not at all,?Moving or speaking so slowly that other people could have noticed; or the opposite, being so fidgety or restless that you have been moving around a lot more than usual?Not at all,?Thoughts that you would be better off or of hurting yourself in some way?Not at all,?Total Score?0.?Interpretation and Intervention?Depression Screening Findings?Negative,?Follow-Up for Depression?: review of PHQ-9 found negative result, no follow-up needed.?Communication Needs:?Communication Needs?Does the patient have a hearing impairment?No,?Does the patient have a vision impairment??Yes,?If yes, what is the vision impairment??Glasses,?Does the patient have a cognition impairment??No.?Fall Risk:?History?Have you had any falls with injury in the past year??No,?Have you had two or more falls in the past year??No.?SDOH Questions:?SDOH Questions?In the past year have you been worried about losing housing??No,?In the past year have you or any family members you live with been unable to get any of the following when it was really needed? Check all that apply:?None.?Symptom(s):? patient is a 78 yo female here for review of recent labs and follow up of chronic issues not doing well on bp meds./ doesn't feel well on bp meds. did well on lisinopril. had elevated potas but was not on? a diuretic. * ROS:?General/Constitutional:?Change in appetite?denies.?Chills?denies.?Fever?denies.?Ophthalmologic:?Blurred vision?denies.?Discharge?denies.?Pain?denies.?ENT:?Decreased hearing?denies.?Sore throat?denies.?Swollen glands?denies.?Endocrine:?Cold intolerance?denies.?Excessive thirst?denies.?Heat intolerance?denies.?Weight loss?denies.?Respiratory:?Cough?denies.?Shortness of breath at rest?denies.?Shortness of breath with exertion?denies.?Wheezing?denies.?Cardiovascular:?Chest pain at rest?denies.?Chest pain with exertion?denies.?Irregular heartbeat?denies.?Shortness of breath?denies.?Gastrointestinal:?Abdominal pain?denies.?Change in bowel habits?denies.?Diarrhea?denies.?Nausea?denies.?Rectal bleeding?denies.?Vomiting?denies .?Genitourinary:?Blood in urine?denies.?Difficulty urinating?denies.?Frequent urination?denies.?Urinary incontinence?Denies.?Musculoskeletal:?Painful joints?denies.?Weakness?denies.?Skin:?Dry skin?denies.?Itching?denies.?Denies?Mole(s),? changes in moles, new moles or any lesions of concern.?Denies?Photosensitivity.?Rash?denies.?Neurologic:?Dizziness?denies.?Fainting?denies.?Headache?denies.? * Medical History:? * Surgical History:? * Hospitalization/Major Diagno stic Procedure:? * Family History:?Father: dece ased 75 yrs.?Mother: 59 yrs, diagnosed with Cancer.? Father- [place] Mother- lung cancer 1 brother, Denies mental health/substance abuse family history, No pertinent family medical history, Denies mental health/substance abuse family history, No pertinent family medical history. * Social History:?Tobacco Use:?Tobacco Use/Smoking?Patient is a?nonsmoker,?Additional Findings: Tobacco Non-User?Current non-smoker, currently using no form of tobacco.?Drugs/Alcohol:?Alcohol Screen?Did you have a drink containing alcohol in the past year??Yes,?How often did you have a drink containing alcohol in the past year??4 or more times a week (4 points),?How many drinks did you have on a typical day when you were drinking in the past year??1 or 2 drinks (0 point),?How often did you have 6 or more drinks on one occasion in the past year??Never (0 point),?Points?4,?Interpretation?Positive.?Miscellaneous:?Caffeine: yes, frequency:, 2-3 cups per day. Children: no. Exercise: yes, walks the dog. Home smoke detector use: yes. Housing: renting. Living with: alone. Pets: none, 1 dog. Travel outside of the [place]: no. * Medications:?TakingCalcium 5 00 MG Tablet 6 tabs at night and one in morning Twice a day Calcitriol 0.25 MCG Capsule TAKE 1 CAPSULE BY MOUTH THREE TIMES A DAY Carvedilol 12.5 MG Tablet TAKE 1 TABLET BY MOUTH EVERY DAY WITH FOOD FOR 30 DAYS hydroCHLOROthiazide 25 MG Tablet TAKE 1 TABLET BY MOUTH EVERY DAY IN THE MORNING FOR 30 DAYS Taking Calcium 500 MG Tablet 6 tabs at night and one in morning Twice a day Taking Calcitriol 0.25 MCG Capsule TAKE 1 CAPSULE BY MOUTH THREE TIMES A DAY Taking Carvedilol 12.5 MG Tablet TAKE 1 TABLET BY MOUTH EVERY DAY WITH FOOD FOR 30 DAYS Taking hydroCHLOROthiazide 25 MG Tablet TAKE 1 TABLET BY MOUTH EVERY DAY IN THE MORNING FOR 30 DAYS Not-Taking/PRNTamiflu 75 MG Capsule 1 capsule Orally Twice a day Medication List reviewed and reconciled with the patientNot-Taking/PRN Tamiflu 75 MG Capsule 1 capsule Orally Twice a day Medication List reviewed and reconciled with the patient * Allergies:?Penicillin G Nelson athine: dexter[Allergies Verified] Objective: * Vitals:?Ht: 63.5, Wt: 166, B TX:28.94, BP:112/70, Wt-k.3. weight is down 4 pounds since? 06-27-24. * ???Past Orders: ???Lab:Complete Blood Count Auto Diff (Order Date - 07/12/2024) (Collection Date & Time - 07/12/2024 07:24 AM) ? Value Reference Range ?White Blood Count 7.3 4. 8-10.8 - X10*3/uL ?Red Blood Count 4.43 4.20 -5.50 - X10*6/uL ?Hemoglobin 14.3 12.0-16.0 - g/dl ?Hematocrit 43.4 37.0-47.0 - % ?Mean Corpuscular Volume 98.0 80.0-98.0 - fL ?Mean Corpuscular Hemoglobin 32.3 27.0-33.0 - pg ?Mean Corpuscular HGB Conc 32.9 31.0-35.0 - g/dl ?Red Cell Distribution Width 13.0 11.0-16.0 - % ?Platelet Count 401 H 160-4 00 - X10*3/uL ?Mean Platelet Volume 9.9 9.4-12.3 - fL ?Neutrophils Percent Auto 65.5 45-73 - % ?Imm Gran Pct Auto 0.3 0. 0-0.4 - % ?Lymphocytes Percent Auto 24.5 20-40 - % ?Monocytes Percent Auto 8.9 2-11 - % ?Eosinophils Percent Auto 0.4 0-4 - % ?Basophils Percent Auto 0.4 0-2 - % ?NRBC Pct Auto 0.0 0.0-0. 2 - /100WBC ?Neutrophils Absolute Auto 4.8 2.0-8.3 - x10*3/uL ?Imm Gran Abs Auto 0.02 0. 00-0.03 - X10*3/uL ?Lymphocytes Absolute Auto 1.8 1.2-4.9 - X10*3/uL ?Monocytes Absolute Auto 0.7 0.1-1.2 - X10*3/uL ?Eosinophils Absolute Auto 0.0 0.0-0.4 - X10*3/uL ?Basophils Absolute Auto 0.0 0.0-0.2 - X10*3/uL ?NRBC Abs Auto 0.000 0.0-0. 012 - X10*3/uL ???Lab:Comprehensive [place]. P collin Fast (Order Date - 07/12/2024) (Collection Date & Time - 07/12/2024 07:24 AM) ? Value Reference Range ?Sodium 143 135-145 - mmo l/L ?Bilirubin Total 0.6 0.0- 1.0 - mg/dL ?Aspartate Amino Transferase 23 5-31 - U/L ?Alanine Aminotransferase 26 0-31 - U/L ?Total Protein 7.6 6.5-8. 0 - g/dL ?Albumin Level 4.0 3.5-5. 0 - g/dL ?Alkaline Phosphatase 57 39-117 - U/L ?Potassium 4.0 3.3-5.1 - mmol/L ?Chloride 104 96-108 - mm ol/L ?Carbon Dioxide 31 H 22-29 - mmol/L ?Anion Gap 12 12-20 - ?Blood Urea Nitrogen 21 H 9-16 - mg/dL ?Creatinine 0.77 0.5-1.4 - mg/dL ?Estimated Glomerular Filt Rate > 60 - ?Glucose Fasting 157 H 60-9 9 - mg/dL ?Calcium 8.9 8.4-10.2 - m g/dL ???Lab:Lipid Panel (Order Da te - 07/12/2024) (Collection Date & Time - 07/12/2024 07:24 AM) ? Value Reference Range ?Triglycerides 116 <150 - mg/dL ?Cholesterol 192 <200 - m g/dL ?LDL Cholesterol Calculated 125 H <100 - mg/dL ?HDL Cholesterol 44 >40 - mg/dL ???Lab:Parathyroid Hormone I ntact (Order Date - 07/12/2024) (Collection Date & Time - 07/12/2024 07:24 AM) ? Value Reference Range ?Parathyroid Hormone Intact 31.3 8.7-77.1 - pg/mL * Examination: ???General Examination: ?GENERAL APPEARANCE:?well developed, well nourished, in no acute distress.?HEAD:?normocephalic, atraumatic.?EYES:?pupils equal, round, reactive to light and accommodation, sclera non-icteric.?EARS:?normal.?ORAL CAVITY:?mucosa moist.?THROAT:?clear.?NECK/THYROID:?neck supple, full range of motion, no cervical lymphadenopathy, no bruits.?SKIN:?warm and dry, no suspicious lesions.?HEART:?regular rate and rhythm, S1, S2 normal, no murmurs.?LUNGS:?clear to auscultation bilaterally.?BREASTS:?No mass, no lump.?ABDOMEN:?soft, nontender, nondistended, bowel sounds present, normal, no organomegaly , no masses palpable.?RECTAL EXAM:?declined.?FEMALE GENITOURINARY:?declined.?EXTREMITIES:?no clubbing, cyanosis, or edema.?NEUROLOGIC:?nonfocal, motor strength normal upper and lower extremities, sensory exam intact.? Assessment: * Assessment: 1.?Essential hypertension - I10 (Primary)???2.?History of hyperkalemia - Z86.39???3.?Acute UTI - N39.0???4.?Depression screening - Z13.31??? Plan: * Treatment: 2.?History of hyperkalemia? Notes: hopefully with the hctz will be a able to take lisinopril without potassium going up?? 3.?Acute UTI? Notes: has been doing well. treated with appropriate ab.?? 4.?Depression screening? Notes: negative screen?? * Procedure Codes:? * Follow Up:?3 Weeks * * Sign off status: Completed true * Provider:?Juaquin Thapa MD Date:?0 07/18/2024 Generated for Eloy hanna/Jerson/eTransmitting on:?08/01/2024 11:57 AM EST History and Physical Notes * HPI (History of Present Illness) Category Sub-Category Detail Notes Category Not es Symptom(s) patient is a 78 yo female here for review of recent labs and follow up of chronic issues not doing well on bp meds./ doesn't feel well on bp meds. did well on lisinopril. had elevated potas but was not on a diuretic Depression Screening PHQ-9 Little inte rest or pleasure in doing things: Not at all Feeling down, depressed, or hopeless: No t at all Trouble falling or staying asleep, or sl eeping too much: Not at all Feeling tired or having little energy: N ot at all Poor appetite or overeating: Not at all Feeling bad about yourself o r that you are a failure, or have let yourself or your family down: Not at all Trouble concentrating on thi ngs, such as reading the newspaper or watching television: Not at all Moving or speaking so slowly that other people could have noticed; or the opposite, being so fidgety or restless that you have been moving around a lot more than usual: Not at all Thoughts that you would be b jenelle off or of hurting yourself in some way: Not at all Total Score: 0 Interpretation and Intervention Depression Kelby head Findings: Negative Follow-Up for Depression: : review of PH Q-9 found negative result, no follow-up needed SDOH Questions SDOH Questions In the past year have you been worried about losing housing?: No In the past year have you or any family members you live with been unable to get any of the following when it was really needed? Check all that apply:: None Fall Risk History Have you had any falls with injury i n the past year?: No Have you had two or more falls in the year?: No Communication Needs Communication Needs Does the patient have a hearing impairment: No Does the patient have a vision impairmen t?: Yes ?If yes, what is the vision impairment?: Glasses Does the patient have a cognition impair ment?: No Examination Category Sub-Category Detail Notes Category Not es General Examination GENERAL APPEARANCE: well dev eloped, well nourished, in no acute distress HEAD: normocephalic, atrau matic EYES: pupils equal, round, reactive to light and accommodation, sclera non- icteric EARS: normal THROAT: clear NECK/THYROID: neck supple, full ra nge of motion, no cervical lymphadenopathy, no bruits HEART: regular rate and rhy thm, S1, S2 normal, no murmurs LUNGS: clear to auscultatio n bilaterally ABDOMEN: soft, nontender, non distended, bowel sounds present, normal, no organomegaly , no masses palpable NEUROLOGIC: nonfocal, motor stre ngth normal upper and lower extremities, sensory exam intact SKIN: warm and dry, no wolf picious lesions EXTREMITIES: no clubbing, cyanosi s, or edema BREASTS: No mass, no lump RECTAL EXAM: declined FEMALE GENITOURINARY: declined ORAL CAVITY: mucosa moist
--- OUTSIDE RECORDS SUMMARY | 2024-08-01 11:58 | XMS_ITS ---
Author Organization Juaquin Thapa MD Address [address] [place] [id number] Care Team Providers Care Academic Support Coordinator Name Role Phone Juaquin Thapa Primary Care Provider Results Component Value Reference Range Notes Potassium (Not yet reviewed by provider) Interpretation: Performing Lab:[facility], [address] [place] [phone] Notes/Report: Potassium 4.4 3.3-5.1 mmol/L Blood Urea Nitrogen (Not yet reviewed by provider) Interpretation: Performing Lab:[address] [id number] Notes/Report: Blood Urea Nitrogen 19 9-16 mg/dL Creatinine (Not yet reviewed by provider) Interpretation: Performing Lab:[facility], [address] [place] [phone] Notes/Report: Creatinine 0.71 0.5-1.4 mg/dL Estimated Glomerular Filt Rate > 60 Chronic Kidney Disease: Estimated GFR < 60 mL/min/1.73m2 Severe Kidney Disease: Estimated GFR < 15 mL/min/1.73m2 REASON FOR VISIT BUN, CREATININE, POTASSIUM Encounters Encounter Location Date Provider Diagnosis Juaquin Thapa MD [address] [place] [address] Drive [address] [place] [phone] 08/01/2024 Juaquin Thapa Essential hypertension I10 Assessments Encounter Date Diagnosis (ICD Code) Assessment Notes Treatment Notes Treatment Clinical Notes Section Notes 08/01/2024 Essential hypertension (ICD-10 - I10) Plan Of Treatment Pending Test Test Name Order Date Potassium 08/01/2024 Blood Urea Nitrogen 08/01/2024 Creatinine 08/01/2024 Next Appt Details Provider Name:Juaquin Ashford ier, 08/09/2024 01:45:00 PM, [address], [address], [place], [phone], Provider Name:Juaquin Ashford ier, 01/16/2025 01:30:00 PM, [address], [address], [place], [phone], Provider Name:Juaquin Ashford ier, 07/13/2025 08:00:00 AM, [address], [address], [place], [phone], Provider Name:Juaquin Ashford ier, 07/20/2025 01:30:00 PM, [address], [address], [place], [id number], Progress Notes * EMELYKeila PRADO ADOB:[birth year] (78 yo F)Acc No.[id number]:08/01/2024 Progress Note Patient:?Keila VERDE A Provider:?Juaquin Thapa MD :1945???Age:78 Y???Sex:Female D ate:08/01/2024 Address:[address] [place], [place] [id number] Subjective: * Chief Complaints: * ???1. BUN, CREATININE, POTAS SIUM. * Medical History:? Objective: * Vitals:? Assessment: * Assessment: 1.?Essential hypertension - I10??? Plan: * Treatment: * Procedure Codes:?41334 VENIP UNCT, ROUTINE* * * The named appointment provid er may or may not be the originator of this progress note, and it is not deemed complete until electronically signed by the appointment provider. Sign off status: Pending * Provider:?Juaquin Thapa MD Date:?0 08/01/2024 Generated for Eloy hanna/Jerson/eTransmitting on:?08/01/2024 11:57 AM EST
--- OUTSIDE RECORDS SUMMARY | 2024-08-01 11:58 | XMS_ITS | Patient Health Record ---
Author Organization Juaquin Thapa MD Address [address] [place], [place] [id number] Care Team Providers Care Rod Pointer Name Role Phone Juaquin Thapa Primary Care Provider [phone] Allergies Allergen (clinical drug ingredient) Drug/Non Drug Allergy documented on EMR Reaction Allergy Type Onset Date Status Penicillin G Benzathine rash Drug Allergy Active Results Component Value Reference Range Notes Blood Urea Nitrogen Reviewed date:02/01/2024 12:38:55 PM Interpretation: Performing Lab:[facility], [address] [place] [phone] Notes/Report: Blood Urea Nitrogen 19 9-16 mg/dL Creatinine Reviewed date:02/01/2024 12:38:37 PM Interpretation: Performing Lab:[facility], [address] [place] [phone] Notes/Report: Creatinine 0.84 0.5-1.4 mg/dL Estimated Glomerular Filt Rate > 60 NOTE: For -[place] individuals, multiply the result by 1.210. Chronic Kidney Disease: Estimated GFR < 60 mL/min/1.73m2 Severe Kidney Disease: Estimated GFR < 15 mL/min/1.73m2 Calcium Reviewed date:02/01/2024 12:38:46 PM Interpretation: Performing Lab:[facility], [address] [place] [phone] Notes/Report: Calcium 9.1 8.4-10.2 mg/dL Potassium (Not yet reviewed by provider) Interpretation: Performing Lab:[facility], [address] [place] [phone] Notes/Report: Potassium 4.4 3.3-5.1 mmol/L Blood Urea Nitrogen (Not yet reviewed by provider) Interpretation: Performing Lab:[facility], [address] [place] [phone] Notes/Report: Blood Urea Nitrogen 19 9-16 mg/dL Creatinine (Not yet reviewed by provider) Interpretation: Performing Lab:[address] [phone] Notes/Report: Creatinine 0.71 0.5-1.4 mg/dL Estimated Glomerular Filt Rate > 60 Chronic Kidney Disease: Estimated GFR < 60 mL/min/1.73m2 Severe Kidney Disease: Estimated GFR < 15 mL/min/1.73m2 SARS-CoV2/FLU/RSV Reviewed date:06/27/2024 01:54:35 PM Interpretation: Performing Lab:[address] [phone] Notes/Report: Influenza A PCR POSITIVE Negative Influenza [...] by authorized laboratories. Testing performed on the [employer] GeneXpert utilizing real-time RT-PCR. All SARS CoV2 and positive influenza A/B results are reported to [facility]. Urine Culture Reviewed date:07/18/2024 05:15:13 PM Interpretation: Performing Lab:[address] [phone] Notes/Report: O:ESCCOL Escherichia coli Urine Culture Quant Urine Culture > 100,000 cfu/mL Ampicillin <=2 Cefazolin (Urine) <=1 Cefepime <=0.12 Ceftriaxone <=0.25 Ciprofloxacin <=0.06 Gentamicin <=1 Nitrofurantoin <=16 Trimethoprim/Sulfamethoxazo le <=20 Reason For Referral No Information Medications Medication SIG (Take, Route, Frequency, Duration) Notes Start Date End Date Status Calcium 500 MG 6 tabs at night and one in morning Twice a day Active Lisinopril 20 MG 1 tablet Orally Once a day for 30 days 07/18/2024 Active Cephalexin 500 MG 1 capsule Orally twi ce a day for 5 days 07/18/2024 Active hydroCHLOROthiazide 25 MG TAKE 1 TABLET BY MOUTH EVERY DAY IN THE MORNING FOR 30 DAYS for 90 Active Tamiflu 75 MG 1 capsule Orally Twi ce a day for 5 day(s) 06/27/2024 Not-Taking Calcitriol 0.25 MCG TAKE 1 CAPSULE BY MOUTH THREE TIMES A DAY for 90 Active Immunizations Vaccine Route Administration Date Status Comme nts Covid Vaccine Unknown 07/26/2020 Administered Pfizer Covid Vaccine Unknown 08/16/2020 Administered Pfizer SARS-COV-2 Pfizer Unknown 04/06/2021 Administered Fluarix Quadrivalent Unknown 04/27/2018 Refused Shingrix Unknown 05/04/2018 Refused PPSV23 (Pnemovax) Unknown 11/01/2018 Refused Influenza High Dose Unknown 04/25/2019 Refused Fluarix Quadrivalent Unknown 05/07/2020 Refused Fluarix Quadrivalent Unknown 05/30/2021 Refused Social History Tobacco Use: Social History Observation [...] Never (0 point) Points 4 Interpretation Positive Problems Problem Type SNOMED Code ICD Code Onset Dates Problem Status W/U Status Risk Notes Problem 65892844 Age-related osteoporosis without current pathological fracture (M81.0) Active confirmed Problem 97271138 Essential hypertension (I10) Active confirmed Problem 37482420 Hyperparathyroid ism (E21.3) Active confirmed Problem 476857884 Nocturnal leg cr amps (G47.62) Active confirmed Problem 283572028139534 History of parathyroidectomy (Z98.890) Active confirmed Vital Signs Blood pressure diastolic 70 mm Hg 07/18/2024 tae ght is down 4 pounds since 06-27-24 Height 63.5 in 07/18/2024 weight is down 4 pounds since 06-27-24 Blood pressure systolic 112 mm Hg 07/18/2024 weig ht is down 4 pounds since 06-27-24 Weight 166 lbs 07/18/2024 weight is down 4 pounds since 06-27-24 BMI 28.94 kg/m2 07/18/2024 weight is down 4 pounds since 06-27-24 Encounters Encounter Location Date Provider Diagnosis Juaquin Thapa MD [address] [place] [id number] 02/01/2024 Juaquin Thapa Essential hypertensi on I10 and Lower extremity edema R60.0 Juaquin Thapa MD [address] [place] [address] Drive [address] [place] [id number] 08/01/2024 Juaquin Thapa Essential hypertensi on I10 Juaquin Thapa MD [address] [place] [id number] 12/04/2023 Juaquin Thapa Essential hypertensi on I10 ; Lower extremity edema R60.0 and Nocturnal leg cramps G47.62 Juaquin Thapa MD [address] [place] [address] Drive [address] [place] [id number] 01/04/2024 Juaquin Thapa Lower extremity chris a R60.0 and History of parathyroidectomy Z98.890 Juaquin Thapa MD [address] [place] [id number] 02/08/2024 Juaquin Thapa Intermittent vertigo R42 and Essential hypertension I10 Juaquin Thapa MD [address] [place] [id number] 06/27/2024 Juaquin Thapa Respiratory infectio n J98.8 and Flu J11.1 Juaquin Thapa MD [address] [place] [address] Drive [address] [place] [id number] 07/18/2024 Juaquin Thapa Essential hypertensi on I10 ; History of hyperkalemia Z86.39 ; Acute UTI N39.0 and Depression screening Z13.31 Juaquin Thapa MD [address] [place], [place] [id number] 01/05/2024 Juaquin Tahpa Lower extremity chris a R60.0 Assessments Encounter Date Diagnosis (ICD Code) Assessment Notes Treatment Notes Treatment Clinical Notes Section Notes 02/01/2024 Essential hypertension (ICD-10 - I10) 02/01/2024 Lower extremity chris a (ICD-10 - R60.0) 08/01/2024 Essential hypertension (ICD-10 - I10) 12/04/2023 Essential hypertension (ICD-10 - I10) patient verbalized understanding of medication changes and directions for use 12/04/2023 Lower extremity chris a (ICD-10 - R60.0) will continue to monitor 01/04/2024 Lower extremity chris a (ICD-10 - R60.0) pending labs, patient verbalized understanding of medication and direction for use 01/04/2024 History of parathyroidectomy (ICD-10 - Z98.890) parathormone levels normal so calcium should not be a problem, will continue to monitor 02/08/2024 Intermittent vertigo (ICD-10 - R42) has resolved. only lasted a minute and was back to normal so was not a stroke 02/08/2024 Essential hypertension (ICD-10 - I10) 06/27/2024 Respiratory infectio n (ICD-10 - J98.8) patient verbalized understanding of medication and directions for use, order faxed to [facility] patient reg 06/27/2024 Flu (ICD-10 - J11.1) pending diganostic testing 07/18/2024 Essential hypertension (ICD-10 - I10) 07/18/2024 History of hyperkalemia (ICD-10 - Z86.39) hopefully with the hctz will be a able to take lisinopril without potassium going up 01/05/2024 Lower extremity chris a (ICD-10 - R60.0) 12/04/2023 Nocturnal leg cramps (ICD-10 - G47.62) to try some tonic water with quinine, and will continue to monitor 07/18/2024 Acute UTI (ICD-10 - N39.0) has been doing well. treated with appropriate ab. 07/18/2024 Depression screening (ICD-10 - Z13.31) negative screen Plan Of Treatment Pending Test Test Name Order Date XR CERVICAL SPINE 4+ VIEWS 05/30/2021 XR DEXA axial skeleton 05/30/2021 Potassium 08/01/2024 Blood Urea Nitrogen 08/01/2024 Creatinine 08/01/2024 Future Test Test Name Order Date XR DEXA axial skeleton 06/21/2021 Next Appt Details Provider Name:Juaquin Ashford ier, 08/09/2024 01:45:00 PM, [address] [place] [address], [address], [phone], Provider Name:Juaquin Ashford ier, 01/16/2025 01:30:00 PM, [address] [place] [address], [address], [phone], Provider Name:Juaquin Akiko Ashford ier, 07/13/2025 08:00:00 AM, [address] [place] [address], [address], [phone], Provider Name:Juaquin Ashford ier, 07/20/2025 01:30:00 PM, [address] [place] [address], [address], [phone], Insurance Providers Payer Name Payer Address Payer Phone Subscriber Number Group Number Insured Name Patient Relationship to Insured Coverage Start Date Coverage End Date [employer] [address] [place] [address] [id number] Keila Verde Self - patient is the insured [facility] [address] [place] [phone] [id number] Keila Verde Self - patient is the insured Medical (General) History Medical History History ICD Code spoke with radiaologist and 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
== END 2024-08-01 10:54 | disposition home or self-care (01) ==
LOC: HO.LNP 10:53
PROVIDERS: Visit Provider Internal Medicine
DX: I10 Essential (primary) hypertension (principal)
CPT/HCPCS: 82565; 84132; 84520

== ENCOUNTER 2024-11-04 10:38 | Outpatient (REF) | payer MEDICARE, OTHER, SELFPAY ==
--- OUTSIDE RECORDS SUMMARY | 2024-11-04 11:09 | XMS_ITS ---
Author Organization Juaquin Thapa MD Address [address] [place] [phone] Care Team Providers Care Buggy Loader Name Role Phone Juaquin Thapa Primary Care Provider REASON FOR VISIT BUN, CREATININE Encounters Encounter Location Date Provider Diagnosis Juaquin Thapa MD [address] [place] [address] [place] [id number] 11/04/2024 Juaquin Thapa Elevated BUN R79.9 Assessments Encounter Date Diagnosis (ICD Code) Assessment Notes Treatment Notes Treatment Clinical Notes Section Notes 11/04/2024 Elevated BUN (ICD-10 - R79.9) Plan Of Treatment Pending Test Test Name Order Date Blood Urea Nitrogen 11/04/2024 Creatinine 11/04/2024 Next Appt Details Provider Name:Juaquin mccray, 11/11/2024 10:45:00 AM, [address] [place] [address], [address], [phone], Provider Name:Juaquin mccray, 01/16/2025 01:30:00 PM, [address] [place] [address], [phone], Provider Name:Juaquin mccray, 07/13/2025 08:00:00 AM, [address] [place] [address], [phone], Provider Name:Juaquin mccray, 07/20/2025 01:30:00 PM, [address] [place] [address], [phone], Progress Notes * Keila VERDE ADOB:[birth year] (78 yo F)Acc No.[id number]:11/04/2024 Progress Note Patient:Keila CASEY Provider:?Juaquin Thapa MD :1945???Age:78 Y???Sex:Female D ate:11/04/2024 Address:[address] [place] [address] [address] Subjective: * Chief Complaints: * ???1. BUN, CREATININE. * Medical History:? Objective: * Vitals:? Assessment: * Assessment: 1.?Elevated BUN - R79.9??? Plan: * Treatment: * Procedure Codes:?49072 VENIP UNCT, ROUTINE* * * The named appointment provid er may or may not be the originator of this progress note, and it is not deemed complete until electronically signed by the appointment provider. Sign off status: Pending * Provider:?Juaquin Thapa MD Date:?0 11/04/2024 Generated for Eloy hanna/Jerson/Lorieitting on:?11/04/2024 11:09 AM EDT
--- OUTSIDE RECORDS SUMMARY | 2024-11-04 11:09 | XMS_ITS ---
Author Organization Juaquin Thapa MD Address [address] [place] [phone] Care Team Providers Care Operational Communication Chief Name Role Phone Juaquin Thapa Primary Care Provider Allergies Allergen (clinical drug ingredient) Drug/Non Drug Allergy documented on EMR Reaction Allergy Type Onset Date Status Penicillin G Benzathine rash Drug Allergy Active REASON FOR VISIT 3 WEEK F/U Medications Medication SIG (Take, Route, Frequency, Duration) Notes Start Date End Date Status Tamiflu 75 MG 1 capsule Orally Twi ce a day for 5 day(s) 06/27/2024 Not-Taking Calcium 500 MG 6 tabs at night and one in morning Twice a day Active Calcitriol 0.25 MCG TAKE 1 CAPSULE BY [facility] THREE TIMES A DAY for 90 Active Lisinopril-hydroCHLOROth iazide 20-25 MG 1 tablet Orally Once a day for 90 days 08/09/2024 Active Vital Signs Blood pressure systolic 122 mm Hg 08/09/19 25 Blood pressure diastolic 58 mm Hg 025 Height 63.5 in 08/09/2024 Weight 163 lbs 08/09/2024 BMI 28.42 kg/m2 08/09/2024 weight is down 3 pounds [facility] e 07-18-24 Encounters Encounter Location Date Provider Diagnosis Juaquin Thapa MD [address] [place] [phone] 08/09/2024 Juaquin Thapa Elevated BUN R79.9 and Essential hypertension I10 Assessments Encounter Date Diagnosis (ICD Code) Assessment Notes Treatment Notes Treatment Clinical Notes Section Notes 08/09/2024 Elevated BUN (ICD-10 - R79.9) 08/09/2024 Essential hypertension (ICD-10 - I10) patient verbalized understanding of change in medication and directions for use Plan Of Treatment Medication Medication Name Sig Start Date Stop Date Notes Lisinopril 20 MG 1 tablet Orally Once a day 07/18/2024 Lisinopril-hydroCHLOROthiazi de 20-25 MG 1 tablet Orally Once a day for 90 days 08/09/2024 hydroCHLOROthiazide 25 MG TAKE 1 TABLET BY MOUTH EVERY DAY IN THE MORNING FOR 30 DAYS Treatment Notes Assessment Notes Essential hypertension patient verbalize d understanding of change in medication and directions for use Pending Test Test Name Order Date Blood Urea Nitrogen 08/09/2024 Creatinine 08/09/2024 Next Appt Details Follow Up: 3 Months, Reason: Provider Name:Juaquin mccray, 11/11/2024 10:45:00 AM, [address] [place] [address], [address], [phone], Provider Name:Juaquin mccray, 01/16/2025 01:30:00 PM, [address] [place] [address], [address], [phone], Provider Name:Juaquin mccray, 07/13/2025 08:00:00 AM, [address] [place] [address], [address], [phone], Provider Name:Juaquin mccray, 07/20/2025 01:30:00 PM, [address] [place] [address], [address], [phone], Progress Notes * Keila VERDE ADOB:[birth year] (78 yo F)Acc No.[id number]:08/09/2024 Progress Notes Patient:?Keila VERDE A Provider:?Juaquin Thapa MD :1945???Age:78 Y???Sex:Female D ate:08/09/2024 Address:[address] [place] [address], [id number] Subjective: * Chief Complaints: * ???3 WEEK F/U * HPI: ???Symptom(s):?patient is a 78 yo female here for 3 week follow up visit, doing well on lisinopril. feels great . more energy not sluggish. * ROS:?General/Constitutional:?Denies?Chills.?Denies?Fatigue.?Denies?Fever.?Denies?Headache.?ENT:?Patient denies?decreased sense of smell, any loss of taste, sore throat.?Denies?Sore throat.?Respiratory:?Denies?Cough.?Denies?Shortness of breath at rest.?Denies?Shortness of breath with exertion.?Gastrointestinal:?Denies?Diarrhea.?Denies?Nausea.?Musculoskeletal:?Patient denies?muscle aches.?Peripheral Vascular:?Patient denies?red and blue toes.? * Medical History:? * Surgical History:? * Hospitalization/Major Diagno stic Procedure:? * Medications:?TakingCalcium 5 00 MG Tablet 6 tabs at night and one in morning Twice a day Calcitriol 0.25 MCG Capsule TAKE 1 CAPSULE BY MOUTH THREE TIMES A DAY hydroCHLOROthiazide 25 MG Tablet TAKE 1 TABLET BY MOUTH EVERY DAY IN THE MORNING FOR 30 DAYS Lisinopril 20 MG Tablet 1 tablet Orally Once a day Taking Calcium 500 MG Tablet 6 tabs at night and one in morning Twice a day Taking Calcitriol 0.25 MCG Capsule TAKE 1 CAPSULE BY MOUTH THREE TIMES A DAY Taking hydroCHLOROthiazide 25 MG Tablet TAKE 1 TABLET BY MOUTH EVERY DAY IN THE MORNING FOR 30 DAYS Taking Lisinopril 20 MG Tablet 1 tablet Orally Once a day Not-Taking/PRNTamiflu 75 MG Capsule 1 capsule Orally Twice a day Not-Taking/PRN Tamiflu 75 MG Capsule 1 capsule Orally Twice a day DiscontinuedCephalexin 500 MG Capsule 1 capsule Orally twice a day Medication List reviewed and reconciled with the patientDiscontinued Cephalexin 500 MG Capsule 1 capsule Orally twice a day Medication List reviewed and reconciled with the patient * Allergies:?Penicillin G Nelson athine: dexter[Allergies Verified] Objective: * Vitals:?Ht: 63.5, Wt: 163, B UT:28.42, BP:122/58, Wt-k.94. weight is down 3 pounds since 07-18-24. * ???Past Orders: ???Lab:Creatinine (Order Gael e 08/01/2024) (Collection Date & Time - 08/01/2024 07:30 AM) ? Value Reference Range ?Creatinine 0.71 0.5-1.4 - mg/dL ?Estimated Glomerular Filt Rate > 60 - ???Lab:Potassium (Order Date - 08/01/2024) (Collection Date & Time - 08/01/2024 07:30 AM) ? Value Reference Range ?Potassium 4.4 3.3-5.1 - mmol/L ???Lab:Blood Urea Nitrogen ( Order Date - 08/01/2024) (Collection Date & Time - 08/01/2024 07:30 AM) ? Value Reference Range ?Blood Urea Nitrogen 19 H 9-16 - mg/dL * Examination: ???General Examination: ?GENERAL APPEARANCE:?well developed, well nourished, female.?HEAD:?normocephalic.?HEART:?no murmurs, rubs, gallops.?LUNGS:?no wheezes, rales, rhonchi, good air movement, clear to auscultation bilaterally.? Assessment: * Assessment: 1.?Elevated BUN - R79.9 (Aimee randolph)???2.?Essential hypertension - I10??? Plan: * Treatment: 2.?Essential hypertension? Start Lisinopril-hydroCHLOROthiazide Tablet, 20-25 MG, 1 tablet, Orally, Once a day, 90 days, 90 Tablet, Refills 3.?? Notes: patient verbalized understanding of change in medication and directions for use?? * Procedure Codes:? * Follow Up:?3 Months * * Sign off status: Completed true * Provider:?Juaquin Thapa MD Date:?0 08/09/2024 Generated for Eloy hanna/Jerson/eTransmitting on:?11/04/2024 11:09 AM EDT History and Physical Notes * HPI (History of Present Illness) Category Sub-Category Detail Notes Category Not es Symptom(s) patient is a 78 yo female here for 3 week follow up visit, doing well on lisinopril. feels great . more energy not sluggish Examination Category Sub-Category Detail Notes Category Not es General Examination GENERAL APPEARANCE: well dev eloped, well nourished, female HEAD: normocephalic HEART: no murmurs, rubs, ga llops LUNGS: no wheezes, rales, r honchi, good air movement, clear to auscultation bilaterally
--- OUTSIDE RECORDS SUMMARY | 2024-11-04 11:09 | XMS_ITS | Patient Health Record ---
Author Organization Juaquin Thapa MD Address [address] [place], [place] [id number] Care Team Providers Care Signing Teacher Name Role Phone Juaquin Thapa Primary Care Provider Allergies Allergen (clinical drug ingredient) Drug/Non Drug Allergy documented on EMR Reaction Allergy Type Onset Date Status Penicillin G Benzathine rash Drug Allergy Active Results Component Value Reference Range Notes Blood Urea Nitrogen Reviewed date:02/01/2024 12:38:55 PM Interpretation: Performing Lab:[address] [phone] Notes/Report: Blood Urea Nitrogen 19 9-16 mg/dL Creatinine Reviewed date:02/01/2024 12:38:37 PM Interpretation: Performing Lab:[address] [phone] Notes/Report: Creatinine 0.84 0.5-1.4 mg/dL Estimated Glomerular Filt Rate > 60 NOTE: For -Cypriot individuals, multiply the result by 1.210. Chronic Kidney Disease: Estimated GFR < 60 mL/min/1.73m2 Severe Kidney Disease: Estimated GFR < 15 mL/min/1.73m2 Calcium Reviewed date:02/01/2024 12:38:46 PM Interpretation: Performing Lab:[address] [phone] Notes/Report: Calcium 9.1 8.4-10.2 mg/dL Potassium Reviewed date:08/01/2024 12:31:54 PM Interpretation: Performing Lab:[facility], [address] [place] [id number] Notes/Report: Potassium 4.4 3.3-5.1 mmol/L Blood Urea Nitrogen Reviewed date:08/01/2024 12:31:29 PM Interpretation: Performing Lab:[facility], [address] [place] [phone] Notes/Report: Blood Urea Nitrogen 19 9-16 mg/dL Creatinine Reviewed date:08/01/2024 12:31:21 PM Interpretation: Performing Lab:[address] [phone] Notes/Report: Creatinine 0.71 0.5-1.4 mg/dL Estimated Glomerular Filt Rate > 60 Chronic Kidney Disease: Estimated GFR < 60 mL/min/1.73m2 Severe Kidney Disease: Estimated GFR < 15 mL/min/1.73m2 SARS-CoV2/FLU/RSV Reviewed date:06/27/2024 01:54:35 PM Interpretation: Performing Lab:[address] [phone] Notes/Report: Influenza A PCR POSITIVE Negative Influenza [...] by authorized laboratories. Testing performed on the [employer] GeneXpert utilizing real-time RT-PCR. All SARS CoV2 and positive influenza A/B results are reported to [facility]. Urine Culture Reviewed date:07/18/2024 05:15:13 PM Interpretation: Performing Lab:[address] [phone] Notes/Report: O:ESCCOL Escherichia coli Urine Culture Quant Urine Culture > 100,000 cfu/mL Ampicillin <=2 Cefazolin (Urine) <=1 Cefepime <=0.12 Ceftriaxone <=0.25 Ciprofloxacin <=0.06 Gentamicin <=1 Nitrofurantoin <=16 Trimethoprim/Sulfamethoxazo le <=20 Reason For Referral No Information Medications Medication SIG (Take, Route, Frequency, Duration) Notes Start Date End Date Status Tamiflu 75 MG 1 capsule Orally Twi ce a day for 5 day(s) 06/27/2024 Not-Taking Lisinopril-hydroCHLOROth iazide 20-25 MG 1 tablet Orally Once a day for 90 days 08/09/2024 Active Calcium 500 MG 6 tabs at night and one in morning Twice a day Active Calcitriol 0.25 MCG TAKE 1 CAPSULE BY [facility] THREE TIMES A DAY for 90 Active [...] Problem Status W/U Status Risk Notes Problem 68292410 Age-related osteoporosis without current pathological fracture (M81.0) Active confirmed Problem 36646614 Essential hypertension (I10) Active confirmed Problem 61092119 Hyperparathyroid ism (E21.3) Active confirmed Problem 693054844 Nocturnal leg cr amps (G47.62) Active confirmed Problem [id number] History of parathyroidectomy (Z98.890) Active confirmed Vital Signs Blood pressure diastolic 58 mm Hg 08/09/2024 tae ght is down 3 pounds since 07-18-24 Height 63.5 in 08/09/2024 weight is down 3 pounds since 07-18-24 Blood pressure systolic 122 mm Hg 08/09/2024 weig ht is down 3 pounds since 07-18-24 Weight 163 lbs 08/09/2024 weight is down 3 pounds since 07-18-24 BMI 28.42 kg/m2 08/09/2024 weight is down 3 pounds since 07-18-24 Encounters Encounter Location Date Provider Diagnosis Juaquin Thapa MD [address] [place] [id number] 02/01/2024 Juaquin Thapa Essential hypertensi on I10 and Lower extremity edema R60.0 Juaquin Thapa MD [address] [place] [id number] 08/01/2024 Juaquin Thapa Essential hypertensi on I10 Juaquin Thapa MD [address] [place] [id number] 11/04/2024 Juaquin Thapa Elevated BUN R79.9 Juaquin Thapa MD [address] [place] [id number] 12/04/2023 Juaquin Thapa Essential hypertensi on I10 ; Lower extremity edema R60.0 and Nocturnal leg cramps G47.62 Juaquin Thapa MD [address] [place] [id number] 01/04/2024 Juaquin Thapa Lower extremity chris a R60.0 and History of parathyroidectomy Z98.890 Juaquin Thapa MD [address] [place] [id number] 02/08/2024 Juaquin Thapa Intermittent vertigo R42 and Essential hypertension I10 Juaquin Thapa MD [address] [place] [id number] 06/27/2024 Juaquin Thapa Respiratory infectio n J98.8 and Flu J11.1 Juaquin Thapa MD [address] [place] [id number] 07/18/2024 Juaquin Thapa Essential hypertensi on I10 ; History of hyperkalemia Z86.39 ; Acute UTI N39.0 and Depression screening Z13.31 Juaquin Thapa MD [address] [place] [id number] 08/09/2024 Juaquin Thapa Elevated BUN R79.9 a nd Essential hypertension I10 Juaquin Thapa MD [address] [place] [id number] 01/05/2024 Juaquin Thapa Lower extremity chris a R60.0 Assessments Encounter Date Diagnosis (ICD Code) Assessment Notes Treatment Notes Treatment Clinical Notes Section Notes 02/01/2024 Essential hypertension (ICD-10 - I10) 02/01/2024 Lower extremity chris a (ICD-10 - R60.0) 08/01/2024 Essential hypertension (ICD-10 - I10) 11/04/2024 Elevated BUN (ICD-10 - R79.9) 12/04/2023 Essential hypertension (ICD-10 - I10) patient [...] and directions for use, order faxed to [facility] patient reg 06/27/2024 Flu (ICD-10 - J11.1) pending diganostic testing 07/18/2024 Essential hypertension (ICD-10 - I10) 07/18/2024 History of hyperkalemia (ICD-10 - Z86.39) hopefully with the hctz will be a able to take lisinopril without potassium going up 08/09/2024 Elevated BUN (ICD-10 - R79.9) 01/05/2024 Lower extremity chris a (ICD-10 - R60.0) 12/04/2023 Nocturnal leg cramps (ICD-10 - G47.62) to try some tonic water with quinine, and will continue to monitor 07/18/2024 Acute UTI (ICD-10 - N39.0) has been doing well. treated with appropriate ab. 08/09/2024 Essential hypertension (ICD-10 - I10) patient verbalized understanding of change in medication and directions for use 07/18/2024 Depression screening (ICD-10 - Z13.31) negative screen Plan Of Treatment Pending Test Test Name Order Date XR CERVICAL SPINE 4+ VIEWS 05/30/2021 XR DEXA axial skeleton 05/30/2021 Blood Urea Nitrogen 11/04/2024 Creatinine 11/04/2024 Future Test Test Name Order Date XR DEXA axial skeleton 06/21/2021 Next Appt Details Provider Name:Juaquin Ashford ier, 11/11/2024 10:45:00 AM, [address] [place] [address], [address], [phone], Provider Name:Juaquin Ashford ier, 01/16/2025 01:30:00 PM, [address] [place] [address], [address], [phone], Provider Name:Juaquin Ashford ier, 07/13/2025 08:00:00 AM, [address] [place] [address], [address], [phone], Provider Name:Juaquin Ashford ier, 07/20/2025 01:30:00 PM, [address] [place] [address], [address], [phone], Insurance Providers Payer Name Payer Address Payer Phone Subscriber Number Group Number Insured Name Patient Relationship to Insured Coverage Start Date Coverage End Date [employer] [address] [place] [address] [id number] Keila Verde Self - patient is the insured [facility] [address] [place] [phone] [id number] Keila Verde Self - patient is the insured Medical (General) History Medical History History ICD Code spoke with radiaologist and 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
--- OUTSIDE RECORDS SUMMARY | 2024-11-04 11:09 | XMS_ITS ---
Author Organization Juaquin Thapa MD Address [address] [place] [phone] Care Team Providers Care Nursing Unit Coordinator Name Role Phone Juaquin Thapa Primary Care Provider [phone] Results Component Value Reference Range Notes Potassium Reviewed date:08/01/2024 12:31:54 PM Interpretation: Performing Lab:[address] [id number] Notes/Report: Potassium 4.4 3.3-5.1 mmol/L Blood Urea Nitrogen Reviewed date:08/01/2024 12:31:29 PM Interpretation: Performing Lab:[address] [address] Notes/Report: Blood Urea Nitrogen 19 9-16 mg/dL Creatinine Reviewed date:08/01/2024 12:31:21 PM Interpretation: Performing Lab:[address] [address] Notes/Report: Creatinine 0.71 0.5-1.4 mg/dL Estimated Glomerular Filt Rate > 60 Chronic Kidney Disease: Estimated GFR < 60 mL/min/1.73m2 Severe Kidney Disease: Estimated GFR < 15 mL/min/1.73m2 REASON FOR VISIT BUN, CREATININE, POTASSIUM Encounters Encounter Location Date Provider Diagnosis Juaquin Thapa MD [address] [place] [id number] 08/01/2024 Juaquin Thapa Essential hypertension I10 Assessments Encounter Date Diagnosis (ICD Code) Assessment Notes Treatment Notes Treatment Clinical Notes Section Notes 08/01/2024 Essential hypertension (ICD-10 - I10) Plan Of Treatment Next Appt Details Provider Name:Juaquin Ashford ier, 11/11/2024 10:45:00 AM, [address], [address], [place], [phone], Provider Name:Juaquin Ashford ier, 01/16/2025 01:30:00 PM, [address], [address], [place], [phone], Provider Name:Juaquin Ashford ier, 07/13/2025 08:00:00 AM, [address], [address], [place], [phone], Provider Name:Juaquin Ashford ier, 07/20/2025 01:30:00 PM, [address], [address], [place], [phone], Progress Notes * JUAN FRANCISCO Keila ADOB:[birth year] (78 yo F)Acc No.[id number]:08/01/2024 Progress Note Patient:?Keila VERDE A Provider:?Juaquin Thapa MD :1945???Age:78 Y???Sex:Female D ate:08/01/2024 Address:[address] [place], [place] [phone] Subjective: * Chief Complaints: * ???1. BUN, CREATININE, POTAS SIUM. * Medical History:? Objective: * Vitals:? Assessment: * Assessment: 1.?Essential hypertension - I10 (Primary)??? Plan: * Treatment: * Procedure Codes:?89044 VENIP UNCT, ROUTINE* * * The named appointment provid er may or may not be the originator of this progress note, and it is not deemed complete until electronically signed by the appointment provider. Sign off status: Pending * Provider:?Juaquin Thapa MD Date:?0 08/01/2024 Generated for Eloy hanna/Jerson/eTransmitting on:?11/04/2024 11:09 AM EDT
[2024-11-04 11:11] LABS: Blood Urea Nitrogen 21 mg/dL (9-16); Estimated Glomerular Filt Rate > 60
== END 2024-11-04 10:39 | disposition home or self-care (01) ==
LOC: HO.LNP 10:38
PROVIDERS: Visit Provider Internal Medicine
DX: R79.9 Abnormal finding of blood chemistry, unspecified (principal)
CPT/HCPCS: 82565; 84520

== ENCOUNTER 2024-12-13 10:54 | Outpatient (REF) | payer MEDICARE, OTHER, SELFPAY ==
--- OUTSIDE RECORDS SUMMARY | 2024-11-11 06:45 | XMS_ITS ---
Author Organization Juaquin Thapa MD Address [address] [place] [phone] Care Team Providers Care Electrician Wiring Name Role Phone Juaquin Thapa Primary Care Provider Allergies Allergen (clinical drug ingredient) Drug/Non Drug Allergy documented on EMR Reaction Allergy Type Onset Date Status Penicillin G Benzathine rash Drug Allergy Active REASON FOR VISIT 3 MO F/U Medications Medication SIG (Take, Route, Frequency, Duration) Notes Start Date End Date Status Tamiflu 75 MG 1 capsule Orally Twi ce a day for 5 day(s) 06/27/2024 Not-Taking Lisinopril-hydroCHLOROth iazide 20-25 MG 1 tablet Orally Once a day 08/09/2024 Active Calcitriol 0.25 MCG TAKE 1 CAPSULE BY [facility] THREE TIMES A DAY for 90 Active Calcium 500 MG 6 tabs at night and one in morning Twice a day Active Vital Signs Blood pressure systolic 132 mm Hg 11/12/19 25 Blood pressure diastolic 60 mm Hg 025 Height 63.5 in 11/11/2024 Weight 163 lbs 11/11/2024 BMI 28.42 kg/m2 11/11/2024 Encounters Encounter Location Date Provider Diagnosis Juaquin Thapa MD [address] [facility] [address] [place] [phone] 11/11/2024 Juaquin Thapa Essential hypertensi on I10 ; Hyperparathyroidism E21.3 and Elevated BUN R79.9 Assessments Encounter Date Diagnosis (ICD Code) Assessment Notes Treatment Notes Treatment Clinical Notes Section Notes 11/11/2024 Essential hypertensi on (ICD-10 - I10) well controlled, will continue current regiment 11/11/2024 Hyperparathyroidism (ICD-10 - E21.3) doing well after surgery 11/11/2024 Elevated BUN (ICD-10 - R79.9) is secondary to the lisinopril/, will continue to monitor Plan Of Treatment Medication Medication Name Sig Start Date Stop Date Notes Lisinopril-hydroCHLOROthiazi de 20-25 MG 1 tablet Orally Once a day 08/09/2024 Treatment Notes Assessment Notes Essential hypertension well controlled, will continue current regiment Hyperparathyroidism doing well after jeannie chris Elevated BUN is secondary to the lisinopril/, will continue to monitor Pending Test Test Name Order Date Potassium 11/11/2024 Next Appt Details Provider Name:Juaquin nelsonr, 01/16/2025 01:30:00 PM, [address] [place] [place] [address], [address] [place] [address], [phone], Provider Name:Juaquin nelsonr, 07/13/2025 08:00:00 AM, [address] [place] [place] [address], Suite [facility], [place], [place], [phone], Provider Name:Juaquin Ashford ier, 07/20/2025 01:30:00 PM, [address] [place] [place] [address], Suite [facility], [place], [place], [phone], Progress Notes * Keila VERDE ADOB:[birth year] (78 yo F)Acc No.[id number]:11/11/2024 Progress Notes Patient: Keila COVARRUBIAS A Provider: Roque Thapa MD :1945 A ge:78 Y S ex:Female Date:11/11/2024 Address:[address] [place] [address] [address], [id number] Subjective: * Chief Complaints: * 3 MO F/U * HPI: S ymptom(s): patient is a 78 yo femalsite here for 3 month follow up visit. * ROS: G eneral/Constitutional: Denies C hills. D enies F atigue. D enies F ever. D enies H eadache. E NT: Denies S ore throat. R espiratory: Denies C ough. D enies S hortness of breath at rest. D enies S hortness of breath with exertion. C ardiovascular: Denies C hest pain at rest. D enies C hest pain with exertion. D enies P alpitations. D enies S hortness of breath. G astrointestinal: Denies D iarrhea. D enies N ausea. * Medical History: * Surgical History: * Hospitalization/Major Diagno stic Procedure: * Medications: T akingCalcium 500 MG Tablet 6 tabs at night and one in morning Twice a day Calcitriol 0.25 MCG Capsule TAKE 1 CAPSULE BY MOUTH THREE TIMES A DAY Lisinopril-hydroCHLOROthiazide 20-25 MG Tablet 1 tablet Orally Once a day Taking Calcium 500 MG Tablet 6 tabs at night and one in morning Twice a day Taking Calcitriol 0.25 MCG Capsule TAKE 1 CAPSULE BY MOUTH THREE TIMES A DAY Taking Lisinopril-hydroCHLOROthiazide 20-25 MG Tablet 1 tablet Orally Once a day Not-Taking/PRNTamiflu 75 MG Capsule 1 capsule Orally Twice a day Medication List reviewed and reconciled with the patientNot-Taking/PRN Tamiflu 75 MG Capsule 1 capsule Orally Twice a day Medication List reviewed and reconciled with the patient * Allergies: P enicillin G Benzathine: dexter[Allergies Verified] Objective: * Vitals: H t: 63.5, Wt: 163, BMI:28.42, BP:132/60, Wt-k.94. * Examination: G eneral Examination: GENERAL APPEARANCE: a lert, well hydrated, in no distress.? HEAD: n ormocephalic. SKIN: g ood turgor. HEART: r egular rate and rhythm, no murmurs, rubs, gallops.? LUNGS: n o wheezes, rales, rhonchi, good air movement, clear to auscultation bilaterally. Assessment: * Assessment: 1. E ssential hypertension - I10 (Primary) 2 . H yperparathyroidism - E21.3? 3. E levated BUN - R79.9 Plan: * Treatment: 2. H yperparathyroidism Notes: doing well after surgery 3. E levated BUN Notes: is secondary to the lisinopril/, will continue to monitor * Procedure Codes: G 2211 Complex e/m visit add on * * Sign off status: Completed true * Provider: Roque Thapa MD Date: 0 11/11/2024 Generated for Eloy hanna/Jerson/Lorieitting on: 0 12/13/2024 12:24 PM EDT History and Physical Notes * HPI (History of Present Illness) Category Sub-Category Detail Notes Category Not es Symptom(s) patient is a 78 yo femalsite here for 3 month follow up visit Examination Category Sub-Category Detail Notes Category Not es General Examination GENERAL APPEARANCE: alert, w ell hydrated, in no distress HEAD: normocephalic HEART: regular rate and rhy thm, no murmurs, rubs, gallops LUNGS: no wheezes, rales, r honchi, good air movement, clear to auscultation bilaterally SKIN: good turgor
[2024-12-13 11:15] LABS: Potassium 4.5 mmol/L (3.3-5.1)
== END 2024-12-13 10:55 | disposition home or self-care (01) ==
LOC: HO.LNP 10:54
PROVIDERS: Visit Provider Internal Medicine
DX: G47.62 Sleep related leg cramps (principal)
CPT/HCPCS: 84132